=== PATIENT | female | born 1970 | race American Indian/Alaskan Native ===

== ENCOUNTER 2017-04-04 16:57 | Emergency (ER) | payer BC, OTHER ==
[2017-04-04] MEDS ORDERED: TYLENOL PO ONE (18:17)
[2017-04-04] MEDS ORDERED: NACL 0.9% 1000 ML 1,000 ML IV ONE (19:58)
[2017-04-04] MEDS ORDERED: ZOFRAN IV ONE (20:02)
--- NOTE | 2017-04-04 20:03 | Emergency Department Report ---
ED General Adult HPI - General Chief complaint: Upper Respiratory Infection Stated complaint: HEAD/THROAT/EARS Time Seen by Provider: 04/04/17 19:45 Source: patient Mode of arrival: Ambulatory Limitations: No Limitations - History of Present Illness Initial comments: headache, fever, cough, dizziness loss of appetite x 2 weeks Onset/Timin -: week(s) Location: head Radiation: non-radiation Severity scale (0 -10): 3 Quality: aching Consistency: intermittent Improves with: none Worsens with: eating, movement Associated Symptoms: cough, fever/chills, headaches, loss of appetite, malaise, nausea/vomiting. denies: confusion, chest pain, diaphoresis, rash, seizure, shortness of breath, syncope, weakness Treatments Prior to Arrival: none - Related Data Home Medications Medication Instructions Recorded Confirmed Last Taken Omeprazole [PriLOSEC] 40 mg PO QDAY 05/03/15 02/08/16 05/03/15 Triamter/Hctz 37.5-25 mg 1 tab PO QDAY 02/08/16 02/08/16 Unknown [Maxzide-25] Previous Rx's Medication Instructions Recorded Last Taken Type sulfaSALAzine [Azulfidine] 500 mg PO Q12HR #30 tablet 08/25/14 05/03/15 Rx Starch 51%(Nf) [Anusol] 1 each [place] BID #12 supp.rect 08/02/15 Unknown Rx HYDROcodone/APAP 5-325 [[place] 1 each PO Q4HR PRN #15 tablet 02/08/16 Unknown Rx 5/325] Amoxicillin/K Clav Tab [Augmentin 1 tab PO Q12HR #20 tab 04/04/17 Unknown Rx 875 mg] Fluticasone [Flonase] 1 spray NS QDAY #1 bottle 04/04/17 Unknown Rx Naproxen [Naprosyn TAB] 500 mg PO BID #30 tablet 04/04/17 Unknown Rx Allergies Allergy/AdvReac Type Severity Reaction Status Date / Time No Known Allergies Allergy Verified 04/04/17 17:07 ED Review of Systems ROS: Stated complaint: HEAD/THROAT/EARS Other details as noted in HPI Constitutional: chills, fever, malaise Eyes: denies: eye pain, eye discharge, vision change ENT: ear pain, throat pain, congestion. denies: dental pain, hearing loss, epistaxis Respiratory: cough. denies: orthopnea, shortness of breath, wheezing Cardiovascular: denies: chest pain, palpitations, dyspnea on exertion, orthopnea , edema, syncope, paroxysmal nocturnal dyspnea Endocrine: no symptoms reported Gastrointestinal: nausea, vomiting. denies: abdominal pain, diarrhea, constipation, hematemesis, melena, hematochezia Genitourinary: denies: urgency, dysuria, discharge Musculoskeletal: myalgia Skin: denies: rash, lesions Neurological: headache. denies: weakness, numbness, paresthesias, confusion, abnormal gait, vertigo Psychiatric: denies: anxiety, depression Hematological/Lymphatic: denies: easy bleeding, easy bruising ED Past Medical Hx - Past Medical History Previous Medical History?: No Hx Hypertension: Yes Hx GERD: Yes Additional medical history: chrons. Sinus disease. UTI. Hemorrhoids - Surgical History Additional Surgical History: tubal ligation - Social History Smoking Status: Current Some Day Smoker Substance Use Type: None - Medications Home Medications: Home Medications Medication Instructions Recorded Confirmed Last Taken Type sulfaSALAzine [Azulfidine] 500 mg PO Q12HR #30 tablet 08/25/14 02/08/16 Rx Omeprazole [PriLOSEC] 40 mg PO QDAY 05/03/15 02/08/16 05/03/15 History [place] 51%(Nf) [Anusol] 1 each [place] BID #12 supp.rect 08/02/15 02/08/16 Unknown Rx HYDROcodone/APAP 5-325 [[place] 1 each PO Q4HR PRN #15 tablet 02/08/16 Unknown Rx 5/325] Triamter/Hctz 37.5-25 mg 1 tab PO QDAY 02/08/16 02/08/16 Unknown History [Maxzide-25] Amoxicillin/K Clav Tab [Augmentin 1 tab PO Q12HR #20 tab 04/04/17 Unknown Rx 875 mg] Fluticasone [Flonase] 1 spray NS QDAY #1 bottle 04/04/17 Unknown Rx Naproxen [Naprosyn TAB] 500 mg PO BID #30 tablet 04/04/17 Unknown Rx ED Physical Exam - General Limitations: No Limitations General appearance: alert, in no apparent distress - Head Head exam: Present: atraumatic, normocephalic - Eye Eye exam: Present: normal appearance, PERRL, EOMI - ENT ENT exam: Present: mucous membranes moist - Expanded ENT Exam Expanded Ear exam: Present: normal external inspection TM/Canal exam: Erythema: Left TM, Canal Tenderness: Right TM, Left TM Mouth exam: Present: normal external inspection, tongue normal, other (bilat maxillary sinus pain to palpation, yellow post nasal drip, ). Absent: trismus Teeth exam: Present: normal inspection Throat exam: Positive: other (uvula midline airway is patent). Negative: tonsillar erythema, tonsillomegaly, tonsillar exudate, R peritonsillar mass, L peritonsillar mass - Neck Neck exam: Present: normal inspection, full ROM. Absent: tenderness, lymphadenopathy, thyromegaly - Respiratory Respiratory exam: Present: normal lung sounds bilaterally, chest wall tenderness. Absent: respiratory distress, wheezes, stridor, accessory muscle use - Cardiovascular Cardiovascular Exam: Present: regular rate, normal heart sounds - GI/Abdominal GI/Abdominal exam: Present: soft, normal bowel sounds. Absent: distended, tenderness, guarding, rebound, rigid, organomegaly, mass, bruit, hernia - Rectal Rectal exam: Present: deferred - Extremities Exam Extremities exam: Present: normal inspection, full ROM - Back Exam Back exam: Present: normal inspection, full ROM. Absent: CVA tenderness (R), CVA tenderness (L), muscle spasm, paraspinal tenderness, vertebral tenderness, rash noted - Neurological Exam Neurological exam: Present: alert, oriented X3, CN II-XII intact, normal gait, reflexes normal - Psychiatric Psychiatric exam: Present: normal affect, normal mood - Skin Skin exam: Present: warm, dry, intact, normal color. Absent: rash ED Course Vital Signs 04/04/17 04/04/17 17:07 22:05 Temperature 99.4 F 98.1 F Pulse Rate 119 H 96 H Respiratory 18 16 Rate Blood Pressure 146/97 Blood Pressure 142/82 [Left] O2 Sat by Pulse 100 100 Oximetry - Reevaluation(s) Reevaluation #1: pt advises symptoms improved no fever, headache reduces ot 0/10 no dizziness pt is ambulatory gait is steady pt continues to tolerated po intake without n/v plan tx for sinusitis, aom, pt will follow up with ENT as directed, pt will follow up with primary care for continue management of Crohns, pt verbalized agreement and understanding, repeat vital signs, 04/04/17 22:11 04/04/17 22:14 ED Medical Decision Making - Lab Data Result diagrams: 04/04/17 20:10 04/04/17 20:10 - Medical Decision Making pt is a 46 y/o aaf with hx chrons and sinusitits who presents for cough headache fever, head congestion and intermitent dizziness with n/v x 2 weeks , temp as I'm hot at night with coughing , pt denies sob no cp no pnd no marsh, exam: pt appears nontoxic , a/ox 3 , ENT: as noted bilat maxillary sinus pain to palpation , nose: bilat turbinate erythema swelling no polyps, no obstruction pharynx: moderate erythema no exudate no lesions, uvula mildline airway is patent, lungs clear bilat all lobes no wheezing no rhonchi, cv: s1 and s2 no mrg, abd: bs x 4 qds normal soft round nontender no rebound no bruit no hernia no organomegaly , pt is ambulatory gait steady no vertigo, headach 2/ 10 frontal no eye pain , intermittent n/v relieved today pt is currently tolerating po intake, last meal 2 hrs ago without n/v, last po liquids now, CXR : no infiltrates no opacities, hr noted atg 119, temp 99.9 oral, will obtain cmp, cbc, ua, NS 1000, zofran for nausea, pt advises adherence to omeprazole, and tiramterine daily, Critical care attestation.: If time is entered above; I have spent that time in minutes in the direct care of this critically ill patient, excluding procedure time. ED Disposition Clinical Impression: Sinusitis Qualifiers: Sinusitis location: maxillary Chronicity: acute Recurrence: recurrent Qualified Code(s): J01.01 - Acute recurrent maxillary sinusitis Disposition: - TO HOME OR SELFCARE Is pt being admited?: No Does the pt Need Aspirin: No Condition: Good Additional Instructions: follow up with ENT [facility] [phone] , [address], [facility] [address] Prescriptions: Amoxicillin/K Clav Tab [Augmentin 875 mg] 1 tab PO Q12HR #20 tab Fluticasone [Flonase] 1 spray NS QDAY #1 bottle Naproxen [Naprosyn TAB] 500 mg PO BID #30 tablet Referrals: PRIMARY CARE, [Primary Care Provider] - 3-5 Days Forms: Work/School Release Form(ED) Time of Disposition: 22:20
--- NOTE | 2017-04-04 20:29 | XRay Report ---
FINAL REPORT PROCEDURE: Chest. TECHNIQUE: Frontal and lateral views. HISTORY: Cough, shortness of breath. COMPARISON: No prior studies are available for comparison. FINDINGS: The heart size is normal. There is mild tortuosity of the thoracic aorta. The lungs are clear and well expanded. There are no pleural effusions. The soft tissues and regional skeleton are unremarkable. IMPRESSION: No evidence of acute disease.
[2017-04-04 20:38] LABS: Eosinophils % (Auto) 2.4 % (0.0-4.3); Hematocrit 33.4 % (30.3-42.9); Hemoglobin 10.7 gm/dl (10.1-14.3); Mean Corpuscular HGB Conc 32 % (30-34); Mean Corpuscular Hemoglobin 26 pg (28-32); Mean Corpuscular Volume 82 fl (79-97); Platelet Count 445 K/mm3 (140-440); Red Blood Count 4.09 M/mm3 (3.65-5.03); Red Cell Distribution Width 19.5 % (13.2-15.2); White Blood Count 11.1 K/mm3 (4.5-11.0)
[2017-04-04 20:51] LABS: Alanine Aminotransferase 12 units/L (7-56); Albumin 4.1 g/dL (3.9-5); Albumin/Globulin Ratio 1.4 %; Alkaline Phosphatase 65 units/L (35-129); Anion Gap 17 mmol/L; BUN/Creatinine Ratio 23.33; Blood Urea Nitrogen 14 mg/dL (7-17); Calcium 9.3 mg/dL (8.4-10.2); Carbon Dioxide 27 mmol/L (22-30); Chloride 99.6 mmol/L (98-107); Glucose 97 mg/dL (65-100); Potassium 3.6 mmol/L (3.6-5.0); Sodium 140 mmol/L (137-145)
[2017-04-04] MEDS ORDERED: TORADOL IV ONE (20:56)
[2017-04-04 21:01] LABS: Bilirubin,Urine NEG (Negative); Blood,Urine MOD (Negative); Ketones,Urine NEG (Negative); Leukocyte Esterase,Urine SM (Negative); Nitrite,Urine NEG (Negative); Protein,Urine <15 mg/dL mg/dL (Negative); Urobilinogen,Urine < 2.0 mg/dL (<2.0)
[2017-04-04 21:18] LABS: Bacteria,Urine F /HPF (Negative)
[2017-04-04 22:06] VITALS: BP 142/82
== END 2017-04-04 22:51 | disposition home or self-care (01) ==
LOC: ED 16:57
DX: J01.01 Acute recurrent maxillary sinusitis (principal); I10 Essential (primary) hypertension; K21.9 Gastro-esophageal reflux disease without esophagitis; K50.90 Crohn's disease, unspecified, without complications; Z72.0 Tobacco use
CPT/HCPCS: 36415; 71020; 80053; 81001; 81025; 85025; 96361; 96374; 96375; 99284; J1885; J2405; J7030

== ENCOUNTER 2017-05-20 18:57 | Emergency (ER) | payer OTHER ==
--- NOTE | 2017-05-21 00:28 | Emergency Department Report ---
- General Chief Complaint: Upper Respiratory Infection Stated Complaint: SORE THROAT/EARACHE/CHEST CONGEST/HEADACHE Time Seen by Provider: 05/20/17 23:40 Source: patient Mode of arrival: Ambulatory Limitations: No Limitations - History of Present Illness Initial Comments: This is a 47-year-old female nontoxic, well nourished in appearance, no acute signs of distress presents to the ED complaining of productive cough, sore throat, congestion, and frontal sinus pressure headache 1 week. 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 Patient denies any fever, chills, short of breath, difficulty breathing, drooling, hoarseness, stiff neck, numbness, tingling, nausea or vomiting. Patient denies any allergies. Past medical history includes GERD and hypertension. Patient stated her mucus production is yellow/green in color. Patient denies thunderclap headache. It is a gradual onset. Discussed headache as primarily in the frontal sinus region and describes as aching with level of 10 out of 10. MD Complaint: cough, sore throat, nasal congestion, sinus pain -: Gradual, week(s) (1) Severity: mild Severity scale (0 -10): 10 Quality: aching Consistency: constant Improves With: nothing Worsens With: nothing Context: sick contacts (daycare) Associated Symptoms: headache, nasal congestion, sore throat, cough. denies: fever, chills, myalgias, diaphoresis, rhinorrhea, stiff neck, chest pain, shortness of breath, abdominal pain, nausea, vomiting, diarrhea, dysuria, rash, confusion, right sweats, weight loss, epistaxis, hoarseness, ear pain Treatments Prior to Arrival: none - Related Data Home Medications Medication Instructions Recorded Confirmed Last Taken Omeprazole [PriLOSEC] 40 mg PO QDAY 05/03/15 02/08/16 05/03/15 Triamter/Hctz 37.5-25 mg 1 tab PO QDAY 02/08/16 02/08/16 Unknown [Maxzide-25] Previous Rx's Medication Instructions Recorded Last Taken Type sulfaSALAzine [Azulfidine] 500 mg PO Q12HR #30 tablet 08/25/14 05/03/15 Rx [place] 51%(Nf) [Anusol] 1 each [place] BID #12 supp.rect 08/02/15 Unknown Rx HYDROcodone/APAP 5-325 [[place] 1 each PO Q4HR PRN #15 tablet 02/08/16 Unknown Rx 5/325] Amoxicillin/K Clav Tab [Augmentin 1 tab PO Q12HR #20 tab 04/04/17 Unknown Rx 875 mg] Fluticasone [Flonase] 1 spray NS QDAY #1 bottle 04/04/17 Unknown Rx Naproxen [Naprosyn TAB] 500 mg PO BID #30 tablet 04/04/17 Unknown Rx Amoxicillin/K Clav Tab [Augmentin 1 tab PO Q12HR #20 tab 05/21/17 Unknown Rx 875 mg] Allergies Allergy/AdvReac Type Severity Reaction Status Date / Time No Known Allergies Allergy Verified 04/04/17 17:07 ED Review of Systems ROS: Stated complaint: SORE THROAT/EARACHE/CHEST CONGEST/HEADACHE Other details as noted in HPI Constitutional: denies: chills, fever Eyes: denies: eye pain, eye discharge, vision change ENT: throat pain Respiratory: cough. denies: shortness of breath, wheezing Cardiovascular: denies: chest pain, palpitations Endocrine: no symptoms reported Gastrointestinal: denies: abdominal pain, nausea, diarrhea Genitourinary: denies: urgency, dysuria, discharge Musculoskeletal: denies: back pain, joint swelling, arthralgia Skin: denies: rash, lesions Neurological: denies: headache, weakness, paresthesias Psychiatric: denies: anxiety, depression Hematological/Lymphatic: denies: easy bleeding, easy bruising ED Past Medical Hx - Past Medical History Hx Hypertension: Yes Hx GERD: Yes Additional medical history: chrons. Sinus disease. UTI. Hemorrhoids - Surgical History Additional Surgical History: tubal ligation - Social History Smoking Status: Current Some Day Smoker Substance Use Type: Alcohol - Medications Home Medications: Home Medications Medication Instructions Recorded Confirmed Last Taken Type sulfaSALAzine [Azulfidine] 500 mg PO Q12HR #30 tablet 08/25/14 02/08/16 Rx Omeprazole [PriLOSEC] 40 mg PO QDAY 05/03/15 02/08/16 05/03/15 History [place] 51%(Nf) [Anusol] 1 each [place] BID #12 supp.rect 08/02/15 02/08/16 Unknown Rx HYDROcodone/APAP 5-325 [[place] 1 each PO Q4HR PRN #15 tablet 02/08/16 Unknown Rx 5/325] Triamter/Hctz 37.5-25 mg 1 tab PO QDAY 02/08/16 02/08/16 Unknown History [Maxzide-25] Amoxicillin/K Clav Tab [Augmentin 1 tab PO Q12HR #20 tab 04/04/17 Unknown Rx 875 mg] Fluticasone [Flonase] 1 spray NS QDAY #1 bottle 04/04/17 Unknown Rx Naproxen [Naprosyn TAB] 500 mg PO BID #30 tablet 04/04/17 Unknown Rx Amoxicillin/K Clav Tab [Augmentin 1 tab PO Q12HR #20 tab 05/21/17 Unknown Rx 875 mg] ED Physical Exam - General Limitations: No Limitations General appearance: alert, in no apparent distress - Head Head exam: Present: atraumatic, normocephalic, normal inspection - Eye Eye exam: Present: normal appearance, PERRL, EOMI. Absent: scleral icterus, conjunctival injection, nystagmus, periorbital swelling, periorbital tenderness Pupils: Present: normal accommodation - ENT ENT exam: Present: mucous membranes moist, TM's normal bilaterally, normal external ear exam - Expanded ENT Exam Expanded Mouth exam: Present: normal external inspection, tongue normal. Absent: drooling, trismus, muffled voice, tongue elevation, laceration Teeth exam: Present: normal inspection Throat exam: Positive: tonsillar erythema, tonsillomegaly (2+), tonsillar exudate. Negative: R peritonsillar mass, L peritonsillar mass - Neck Neck exam: Present: normal inspection, full ROM. Absent: tenderness, meningismus, lymphadenopathy, thyromegaly - Respiratory Respiratory exam: Present: normal lung sounds bilaterally. Absent: respiratory distress, wheezes, rales, rhonchi, stridor, chest wall tenderness, accessory muscle use, decreased breath sounds, prolonged expiratory - Cardiovascular Cardiovascular Exam: Present: regular rate, normal rhythm, normal heart sounds. Absent: systolic murmur, diastolic murmur, rubs, gallop - GI/Abdominal GI/Abdominal exam: Present: soft, normal bowel sounds. Absent: distended, tenderness, guarding, rebound, rigid, diminished bowel sounds - Rectal Rectal exam: Present: deferred - Extremities Exam Extremities exam: Present: normal inspection, full ROM, normal capillary refill. Absent: tenderness, pedal edema, joint swelling, calf tenderness - Back Exam Back exam: Present: normal inspection, full ROM. Absent: tenderness, CVA tenderness (R), CVA tenderness (L), muscle spasm, paraspinal tenderness, vertebral tenderness, rash noted - Neurological Exam Neurological exam: Present: alert, oriented X3, CN II-XII intact, normal gait, reflexes normal - Psychiatric Psychiatric exam: Present: normal affect, normal mood - Skin Skin exam: Present: warm, dry, intact, normal color. Absent: rash ED Course Vital Signs 05/20/17 19:52 Temperature 98.8 F Pulse Rate 100 H Respiratory 20 Rate Blood Pressure 122/87 O2 Sat by Pulse 100 Oximetry - Reevaluation(s) Reevaluation #1: 05/21/17 00:28 Patient is speaking in full sentences with no signs of distress noted. ED Medical Decision Making - Medical Decision Making 47-year-old female that presents with tonsillitis with exudate and sinusitis. Patient is stable. Patient was examined myself. Patient be treated with Augmentin at discharge. Was instructed to follow-up with her primary care doctor in 3-5 days or symptoms worsen and continue return to emergency room as soon as possible. At time time of discharge, the patient does not seem toxic or ill in appearance. No acute signs of distress noted. Patient agrees to discharge treatment plan of care. No further questions noted by the patient. Critical care attestation.: If time is entered above; I have spent that time in minutes in the direct care of this critically ill patient, excluding procedure time. ED Disposition Clinical Impression: Tonsillitis with exudate Sinusitis Qualifiers: Sinusitis location: frontal Chronicity: unspecified Qualified Code(s): J32.1 - Chronic frontal sinusitis Disposition: - TO HOME OR SELFCARE Is pt being admited?: No Does the pt Need Aspirin: No Condition: Stable Instructions: Tonsillitis (ED), Amoxicillin/Clavulanate Potassium (By mouth), Sinusitis (ED) Additional Instructions: follow-up with a primary care doctor in 3-5 days or symptoms worsen and continue return to emergency room as soon as possible. Prescriptions: Amoxicillin/K Clav Tab [Augmentin 875 mg] 1 tab PO Q12HR #20 tab Referrals: PRIMARY CARE,MD [Primary Care Provider] - 3-5 Days DONNIE TOVAR MD [Staff Physician] - 3-5 Days [facility] [Outside] - 3-5 Days [facility] [Outside] - 3-5 Days Forms: Work/School Release Form(ED)
--- NOTE | 2017-05-21 01:52 | XRay Report ---
FINAL REPORT PROCEDURE: XR CHEST ROUTINE 2V TECHNIQUE: HISTORY: cough productive COMPARISON: No prior studies are available for comparison. FINDINGS: IMPRESSION:
[2017-05-21 02:29] VITALS: BP 130/86
== END 2017-05-21 03:30 | disposition home or self-care (01) ==
LOC: ED 18:57
DX: J32.1 Chronic frontal sinusitis (principal); J03.90 Acute tonsillitis, unspecified; I10 Essential (primary) hypertension; K21.9 Gastro-esophageal reflux disease without esophagitis; F17.200 Nicotine dependence, unspecified, uncomplicated
CPT/HCPCS: 71020

== ENCOUNTER 2017-09-29 09:57 | Emergency (ER) | payer OTHER ==
[2017-09-29] MEDS ORDERED: NACL 0.9% 1000 ML 1,000 ML IV ONE (11:38)
[2017-09-29 12:20] LABS: Basophils # (Auto) 0.1 K/mm3 (0.0-0.1); Basophils % (Auto) 0.5 % (0.0-1.8); Eosinophils # (Auto) 0.2 K/mm3 (0.0-0.4); Eosinophils % (Auto) 1.6 % (0.0-4.3); Hematocrit 33.8 % (30.3-42.9); Hemoglobin 10.6 gm/dl (10.1-14.3); Lymphocytes # (Auto) 2.5 K/mm3 (1.2-5.4); Lymphocytes % (Auto) 18.6 % (13.4-35.0); Mean Corpuscular HGB Conc 31 % (30-34); Mean Corpuscular Volume 78 fl (79-97); Monocytes # (Auto) 0.8 K/mm3 (0.0-0.8); Monocytes % (Auto) 5.9 % (0.0-7.3); Platelet Count 437 K/mm3 (140-440); Red Blood Count 4.34 M/mm3 (3.65-5.03); Red Cell Distribution Width 18.3 % (13.2-15.2)
[2017-09-29 12:25] LABS: Mean Corpuscular Hemoglobin 25 pg (28-32)
[2017-09-29 12:31] LABS: INR 0.94 (0.87-1.13)
[2017-09-29 12:32] LABS: Partial Thromboplastin Time 28.2 Sec. (24.2-36.6)
[2017-09-29 12:39] LABS: Alanine Aminotransferase 11 units/L (7-56); Albumin 3.9 g/dL (3.9-5); BUN/Creatinine Ratio 26; Blood Urea Nitrogen 13 mg/dL (7-17); Calcium 9.2 mg/dL (8.4-10.2); Hemolysis Index 7; Lipase 19 units/L (13-60)
[2017-09-30] MEDS ORDERED: DILAUDID IV ONE (00:22)
[2017-09-30] MEDS ORDERED: ZOFRAN IV ONE (00:22)
[2017-09-30] MEDS ORDERED: NACL 0.9% 1000 ML 1,000 ML IV ONE (00:22)
--- NOTE | 2017-09-30 02:19 | Cat Scan Report ---
FINAL REPORT EXAM: CT ABDOMEN PELVIS W CON HISTORY: abdominal pain, hx chron's TECHNIQUE: Routine axial imaging was obtained of the abdomen and pelvis following the intravenous injection of 100 cc of Omnipaque 300. Sagittal and coronal reconstructions were obtained. Additional 5 minutes delays were obtained for evaluation of the renal collecting structures. Comparison is made to the previous study of 07/29/2017. FINDINGS: The lung bases are clear. Pleural fluid is not seen. There is a small hiatal hernia. The gallbladder slightly contracted. The liver, pancreas, spleen all appear normal. The adrenal glands reveal stable small nodules in the right adrenal gland. The left adrenal gland appears normal. The kidneys enhance normally. There is a stable 2.1 cm cortical cyst in the middle 3rd of left kidney posteriorly. The vascular structures enhance normally. The small bowel loops are normal in caliber. There is no evidence of inflammatory bowel disease involving the small bowel or terminal ileum. The colon is normal in caliber. There is mild mucosal thickening in the sigmoid colon and rectum. Very mild colitis cannot entirely be excluded. The uterus and bladder appear normal. Free fluid is not seen. There is no evidence of adenopathy. The skeletal structures reveal disc degeneration at the L3-4 and L4-5 levels. IMPRESSION: Very mild mucosal prominence in the sigmoid colon and rectum. Mild colitis cannot be excluded. No evidence of active inflammatory bowel disease involving the small bowel. Stable small right adrenal nodules. 2.1 cm cortical cyst in the left kidney. Arthritic changes at the L3-4 and L4-5 levels.
[2017-09-30] MEDS ORDERED: LEVAQUIN PO ONE (02:31)
[2017-09-30] MEDS ORDERED: FLAGYL PO ONE (02:31)
--- NOTE | 2017-09-30 02:36 | Emergency Department Report ---
HPI - General Chief Complaint: GI Bleed Time Seen by Provider: 09/29/17 23:49 - HPI HPI: The patient is a 47-year-old female with a history of Crohn's disease, who presents for evaluation of abdominal pain. The patient reports sudden onset of severe abdominal pain at 8 AM this morning, greater than 12 hours prior to my evaluation. She says abdominal pain has been 10/10 in severity, cramping and pressure-like in quality, concentrated to the left lower abdomen, and worsen with movement. She also reports nausea and multiple episodes of loose watery stools associated with streaks of blood. The patient denies fever, chills, night sweats, chest pain, dyspnea, lightheadedness, syncope, dysuria, hematuria , flank pain, genital discharge, inability to pass flatus. ED Past Medical Hx - Past Medical History Previous Medical History?: Yes Hx Hypertension: Yes Hx Congestive Heart Failure: No Hx Diabetes: No Hx GERD: Yes Hx Sickle Cell Disease: No Hx Asthma: No Hx COPD: No Hx HIV: No Additional medical history: chrons. Sinus disease. UTI. Hemorrhoids - Surgical History Past Surgical History?: Yes Additional Surgical History: tubal ligation - Social History Smoking Status: Former Smoker Substance Use Type: Alcohol, Prescribed - Medications Home Medications: Home Medications Medication Instructions Recorded Confirmed Last Taken Type Omeprazole [PriLOSEC] 40 mg PO QDAY 05/03/15 07/30/17 07/28/17 History Mesalamine [Pentasa] 1,000 mg PO 4XD 07/29/17 07/29/17 07/28/17 History Pantoprazole [Protonix TAB] 40 mg PO DAILY #30 tablet 08/02/17 Unknown Rx Triamter/Hctz 37.5-25 mg 1 each PO DAILY #30 tablet 08/02/17 Unknown Rx [Maxzide-25] HYDROcodone/APAP 7.5-325 [[place] 1 each PO Q8HR PRN #10 tablet 09/30/17 Unknown Rx 7.5-325 mg TAB] Ibuprofen [Motrin] 800 mg PO Q8HR PRN #15 tablet 09/30/17 Unknown Rx Levofloxacin [Levaquin TAB] 500 mg PO ONCE #10 tablet 09/30/17 Unknown Rx Ondansetron [Zofran TAB] 4 mg PO Q8HR PRN #15 tablet 09/30/17 Unknown Rx metroNIDAZOLE [Flagyl TAB] 500 mg PO ONCE #20 tablet 09/30/17 Unknown Rx ED Review of Systems ROS: Stated complaint: ABD PAIN, BLOODY STOOL Other details as noted in HPI Constitutional: denies: fever ENT: denies: throat or neck pain Respiratory: denies: cough, shortness of breath Cardiovascular: denies: chest pain Endocrine: denies unexplained weight loss or gain Gastrointestinal: reports: abdominal pain, nausea Genitourinary: denies: dysuria Musculoskeletal: denies: leg swelling Skin: denies: rash Neurological: denies: headache Hematological/Lymphatic: denies: easy bleeding or easy bruising Psych: denies sadness or hopelessness Physical Exam - Physical Exam Vital Signs: Vital Signs 09/29/17 09/29/17 11:35 14:47 Temperature 98.4 F 97.5 F L Pulse Rate 97 H 94 H Respiratory 16 16 Rate Blood Pressure 151/93 Blood Pressure 138/84 [138/84] O2 Sat by Pulse 100 100 Oximetry Physical Exam: General: well-nourished, well-developed, no acute distress Head: Normocephalic, atraumatic Eyes: normal sclera ENT: Mucous membranes are pale and dry Neck: trachea midline, neck supple, No neck stiffness, no cervical adenopathy Respiratory: Breath sounds equal bilaterally, no wheezing, rales, or rhonchi Cardio: S1 and S2 present, no murmurs, rubs, gallops, capillary refill is delayed Abdomen: Normoactive bowel sounds, soft abdomen, left lower quadrant periumbilical tenderness to palpation present, no rigidity, no guarding or rebound tenderness, no pain at McBurney's point, Musc: No pitting edema Skin: No rash Neuro: no facial drooping, normal speech Psych: Normal affect ED Course Vital Signs 09/29/17 09/29/17 11:35 14:47 Temperature 98.4 F 97.5 F L Pulse Rate 97 H 94 H Respiratory 16 16 Rate Blood Pressure 151/93 Blood Pressure 138/84 [138/84] O2 Sat by Pulse 100 100 Oximetry ED Medical Decision Making - Lab Data Result diagrams: 09/29/17 11:50 09/29/17 11:50 - Medical Decision Making The patient was seen and examined by myself. The patient is placed on a software test and validation engineer and continuous pulse ox. On initial evaluation, the patient was found to be in no distress. Evaluation orders are placed. IV access is established and the patient is given 1 L normal saline fluid bolus and Zofran for nausea, and IV dilaudid for her pain. Lab results were non-concerning including mildly elevated WBC of 13, and non concerning levels of hgb, hct, electrolytes, renal function, LFTs, lipase, and urinalysis. CT scan the abdomen and pelvis reveals findings suggestive of mild sigmoid colitis, and was negative for appendicitis, bowel obstruction, bowel perforation. The patient was reevaluated and reported that their symptoms were markedly improved. The patient is stable for discharge with outpatient follow-up. The patient is given follow-up and return instructions. The patient expressed understanding and agreed with the plan. The patient is discharged in stable condition. Critical care attestation.: If time is entered above; I have spent that time in minutes in the direct care of this critically ill patient, excluding procedure time. ED Disposition Clinical Impression: Acute colitis, Abdominal pain, acute, left lower quadrant, Dehydration Disposition: - TO HOME OR SELFCARE Is pt being admited?: No Does the pt Need Aspirin: No Condition: Stable Instructions: Irritable Bowel Syndrome (ED), Ulcerative Colitis (ED), Infectious Colitis (ED), Abdominal Pain (ED) Prescriptions: Levofloxacin [Levaquin TAB] 500 mg PO ONCE #10 tablet metroNIDAZOLE [Flagyl TAB] 500 mg PO ONCE #20 tablet Referrals: PRIMARY CARE, [Primary Care Provider] - 3-5 Days Time of Disposition: 02:32
[2017-09-30] MEDS ORDERED: FLAGYL ONE (05:18)
[2017-09-30] MEDS ORDERED: LEVAQUIN ONE (05:19)
[2017-09-30 05:27] VITALS: BP 125/80
== END 2017-09-30 05:50 | disposition home or self-care (01) ==
LOC: ED 09:57
DX: K52.9 Noninfective gastroenteritis and colitis, unspecified (principal); E86.0 Dehydration; R10.32 Left lower quadrant pain
CPT/HCPCS: 36415; 74177; 80053; 83690; 85025; 85610; 85730; 86850; 86900; 86901; 93005; 93010; 96361; 96374; 96375; 99284; Q9967

== ENCOUNTER 2017-10-22 09:58 | Day surgery (SDC) | payer OTHER ==
[2017-10-22] MEDS ORDERED: NACL 0.9% 1000 ML 1,000 ML IV SCH (12:00)
[2017-10-22] MEDS ORDERED: DIPRIVAN 10 MG/ML IV ONE ×2 (13:07)
[2017-10-22] MEDS ORDERED: WATER FOR IRRIG STERILE IR ONE (13:37)
--- NOTE | 2017-10-22 13:38 | Operative Report ---
Operative Report Operative Report: Date of procedure: 10/22/2017 Procedure: Colonoscopy with multiple mucosal biopsies. Attending physician: Roberto Willson MD Lactation Nurse: Roberto Willson MD Indication: Patient is a 47-year-old female who presents with a history of Crohn 's disease. Patient has diffuse abdominal pain and also alteration in bowel habits. A colonoscopy is done to evaluate patient so that treatment may be directed based on the findings. Consent: Informed consent was obtained after advising the patient and family regarding nature of this procedure, its indications, potential benefits as well as possible complications including but not limited to bleeding perforation and adverse reaction to medication, infection as well as other cardiopulmonary complications. An informed written and verbal consent was then obtained after due opportunity was provided for questions and answers. Monitoring: Patient was monitored continuously with pulse oximetry and electrocardiographic recordings as well as blood pressure recordings. Vital signs remained stable throughout this procedure with no untoward events. Preoperative assessment: Patient was assessed immediately prior to this procedure for capacity to tolerate monitored anesthesia care and moderate sedation as well as general anesthesia. Patient's ASA classification is 2, Mallampati class is 2, Hyomental distance is 3. Instrument: TeamPagesn videocolonoscope Medications: Propofol given intravenously in divided doses for details please refer to anesthesia records. Description of procedure: Patient was placed in the left lateral decubitus position after achieving sedation, a digital rectal examination was performed following which the colonoscope was introduced into the anal verge and advanced to the cecum which was identified by the cecal valve, the appendiceal orifice, as well as by the cecal strap and direct transillumination. The colonoscope was subsequently withdrawn with careful inspection of all mucosal surfaces. Patient tolerated this procedure well and was subsequently taken to the recovery room. The following findings were noted. Findings: Patient had a stricture close to the anal verge at about 8 cm. This was fairly difficult to negotiate however eventually, the colonoscope was used to traverse the stricture. It was then advanced to the cecum where patient was noted to have substantial retained stool. Despite vigorous irrigation, some of the stool particles were large enough that this could not be fully displaced. The rest of the ascending colon however was normal. In the transverse colon, patient had inflammatory pseudopolyps. Biopsies were obtained from this area for histopathology. The descending colon was normal. The sigmoid colon was normal. The rectum appeared edematous and hyperemic with effacement of normal vascular markings in some areas. Biopsies were obtained from the rectum for histopathology. On the retroflex view patient had internal hemorrhoids. Patient had vitiligo involving the anal introitus. Impression: Rectal stricture. Inflammatory pseudopolyps in the transverse colon. Anorectal inflammation. Poor colonoscopic preparation. Internal hemorrhoids. Plan: Follow pathology report Continue treatment with Pentasa and finish current prednisone taper. Additional steps will be taken in outpatient follow-up.
--- NOTE | 2017-10-22 13:39 | Discharge Summary ---
Short Stay Discharge Plan Activity: advance as tolerated Weight Bearing Status: Weight Bear as Tolerated Diet: regular Follow up with: LUPE LUJAN MD [Primary Care Provider] - 7 Days
[2017-10-22 13:58] VITALS: BP 126/73
--- NOTE | 2017-10-22 13:59 | Anesthesia Day of Surgery ---
Anesthesia Day of Surgery - Day of Surgery Patient Examined: Yes Patient H&P Reviewed: Yes Patient is NPO: Yes
--- NOTE | 2017-10-22 14:00 | Anesthesia Consultation ---
Anesthesia Consult and Med Hx Date of service: 10/22/17 - Airway Anesthetic Teeth Evaluation: Good ROM Head & Neck: Adequate Mental/Hyoid Distance: Adequate Mallampati Class: Class II Intubation Access Assessment: Probably Good - Pulmonary Exam CTA: Yes - Cardiac Exam Cardiac Exam: RRR - Pre-Operative Health Status ASA Pre-Surgery Classification: ASA3 Proposed Anesthetic Plan: General (crohns dz) - Pulmonary Hx Smoking: Yes Hx Asthma: No COPD: No Hx Pneumonia: No - Cardiovascular System Hx Hypertension: Yes - Central Nervous System Hx Psychiatric Problems: No - Gastrointestinal Hx Ulcer: Yes - Endocrine Hx End Stage Renal Disease: No Hx Hypothyroidism: Yes - Hematic Hx Anemia: Yes Hx Sickle Cell Disease: No - Other Systems Hx Cancer: No
--- NOTE | 2017-10-22 15:03 | Post Anesthesia Evaluation ---
- Post Anesthesia Evaluation Patient Participated: Yes Airway Patent: Yes Stable Respiratory Function: Yes Nausea/Vomiting: No Temp > 96.8F: Yes Pain Manageable: Yes Adequeate Hydration: Yes Anesthesia Complications: No
== END 2017-10-22 09:59 | disposition home or self-care (01) ==
LOC: GIO 09:58
PROVIDERS: ATTEND Internal Medicine Gastroenterology
DX: K51.40 Inflammatory polyps of colon without complications (principal); K52.89 Other specified noninfective gastroenteritis and colitis; K62.89 Other specified diseases of anus and rectum; K62.4 Stenosis of anus and rectum; F17.210 Nicotine dependence, cigarettes, uncomplicated; E03.9 Hypothyroidism, unspecified; I10 Essential (primary) hypertension; K21.9 Gastro-esophageal reflux disease without esophagitis; Z98.51 Tubal ligation status; Z98.890 Other specified postprocedural states; Z79.899 Other long term (current) drug therapy
CPT/HCPCS: 45380; 81025; 88305; J2704; J7030

== ENCOUNTER 2017-11-30 08:48 | Emergency (ER) | payer OTHER ==
[2017-11-30] MEDS ORDERED: NACL 0.9% 1000 ML 1,000 ML IV ONE (09:28)
[2017-11-30] MEDS ORDERED: ZOFRAN IV ONE (09:28)
[2017-11-30 09:52] LABS: Basophils # (Auto) 0.1 K/mm3 (0.0-0.1); Eosinophils # (Auto) 0.2 K/mm3 (0.0-0.4); Eosinophils % (Auto) 1.8 % (0.0-4.3); Hematocrit 32.4 % (30.3-42.9); Hemoglobin 10.5 gm/dl (10.1-14.3); Lymphocytes # (Auto) 2.5 K/mm3 (1.2-5.4); Lymphocytes % (Auto) 24.4 % (13.4-35.0); Mean Corpuscular HGB Conc 32 % (30-34); Mean Corpuscular Hemoglobin 27 pg (28-32); Mean Corpuscular Volume 84 fl (79-97); Monocytes # (Auto) 0.7 K/mm3 (0.0-0.8); Monocytes % (Auto) 6.3 % (0.0-7.3); Platelet Count 480 K/mm3 (140-440); Red Blood Count 3.87 M/mm3 (3.65-5.03)
[2017-11-30 10:04] LABS: Red Cell Distribution Width 21.2 % (13.2-15.2)
[2017-11-30 10:05] LABS: BUN/Creatinine Ratio 26; Blood Urea Nitrogen 13 mg/dL (7-17); Calcium 8.7 mg/dL (8.4-10.2); Hemolysis Index 31
[2017-11-30 10:07] LABS: Alanine Aminotransferase 7 units/L (7-56); Albumin 3.7 g/dL (3.9-5); Lipase 14 units/L (13-60)
[2017-11-30 10:08] LABS: Bilirubin,Direct < 0.2 mg/dL (0-0.2)
[2017-11-30] MEDS ORDERED: REGLAN IV ONE (10:10)
--- NOTE | 2017-11-30 11:09 | Emergency Department Report ---
ED Headache HPI - General Chief Complaint: Headache Stated Complaint: HERNANDEZ/BLEEDING TWO WEEKS Time Seen by Provider: 11/30/17 10:09 - History of Present Illness Initial Comments: 47-year-old female past medical history Crohn's disease on azathioprine and daily prednisone, GERD, tubal ligation, hypertension presents with complaint of persistent headache for one week. Throbbing anterior intermittent and context. Denies photo or phonophobia. Denies chest pain palpitations fever or chills. Denies any head trauma or recent falls. Patient also complains of persistent heavy vaginal bleeding and passing clots from vagina for 2 weeks. Patient denies rectal bleeding. Patient denies any abdominal pain at this time. Has been taking her medicines consistently. She is a smoker. Denies any recent antibiotic use or travel. She also complains of some bilateral ear which may be associated with headache. Denies any purulent drainage from ears. Denies sore throat cough fever or chills. Timing/Duration: 1 week Quality: moderate Head Injury Location: frontal Recent Head Trauma: no recent headache/trauma Associated Symptoms: denies symptoms Allergies/Adverse Reactions: Allergies No Known Allergies Allergy (Verified 11/30/17 09:02) Home Medications: Ambulatory Orders Omeprazole [PriLOSEC] 40 mg PO QDAY 05/03/15 Mesalamine [Pentasa] 1,000 mg PO 4XD 07/29/17 Pantoprazole [Protonix TAB] 40 mg PO DAILY #30 tablet 08/02/17 Triamter/Hctz 37.5-25 mg [Maxzide-25] 1 each PO DAILY #30 tablet 08/02/17 HYDROcodone/APAP 7.5-325 [[place] 7.5-325 mg TAB] 1 each PO Q8HR PRN #10 tablet Ibuprofen [Motrin] 800 mg PO Q8HR PRN #15 tablet 09/30/17 Levofloxacin [Levaquin TAB] 500 mg PO ONCE #10 tablet 09/30/17 Ondansetron [Zofran TAB] 4 mg PO Q8HR PRN #15 tablet 09/30/17 metroNIDAZOLE [Flagyl TAB] 500 mg PO ONCE #20 tablet 09/30/17 Amoxicillin [Trimox CAP] 500 mg PO Q8H #21 capsule 11/30/17 Carbamide Peroxide 6.5% [Ear Wax Drops] 5 drops OT BID #1 bottle 11/30/17 Famotidine [Pepcid] 20 mg PO BID PRN #30 tablet 11/30/17 Ibuprofen [Motrin] 800 mg PO Q8HR PRN #15 tablet 11/30/17 Ondansetron [Zofran Odt] 4 mg PO Q8H PRN #12 tab.rapdis 11/30/17 ED Review of Systems ROS: Stated complaint: HERNANDEZ/BLEEDING TWO WEEKS Other details as noted in HPI Constitutional: denies: chills, fever Eyes: denies: eye pain, eye discharge, vision change ENT: denies: ear pain, throat pain Respiratory: denies: cough, shortness of breath, wheezing Cardiovascular: denies: chest pain, palpitations Endocrine: no symptoms reported Gastrointestinal: denies: abdominal pain, nausea, diarrhea Genitourinary: denies: urgency, dysuria, discharge Musculoskeletal: denies: back pain, joint swelling, arthralgia Skin: denies: rash, lesions Neurological: denies: headache, weakness, paresthesias Psychiatric: denies: anxiety, depression Hematological/Lymphatic: denies: easy bleeding, easy bruising ED Past Medical Hx - Past Medical History Previous Medical History?: Yes Hx Hypertension: Yes Hx Congestive Heart Failure: No Hx Diabetes: No Hx GERD: Yes Hx Sickle Cell Disease: No Hx Asthma: No Hx COPD: No Hx HIV: No Additional medical history: chrons. Sinus disease. UTI. Hemorrhoids - Surgical History Past Surgical History?: Yes Additional Surgical History: tubal ligation - Social History Smoking Status: Never Smoker - Medications Home Medications: Home Medications Medication Instructions Recorded Confirmed Last Taken Type Omeprazole [PriLOSEC] 40 mg PO QDAY 05/03/15 07/30/17 07/28/17 History Mesalamine [Pentasa] 1,000 mg PO 4XD 07/29/17 07/29/17 07/28/17 History Pantoprazole [Protonix TAB] 40 mg PO DAILY #30 tablet 08/02/17 Unknown Rx Triamter/Hctz 37.5-25 mg 1 each PO DAILY #30 tablet 08/02/17 Unknown Rx [Maxzide-25] HYDROcodone/APAP 7.5-325 [[place] 1 each PO Q8HR PRN #10 tablet 09/30/17 Unknown Rx 7.5-325 mg TAB] Ibuprofen [Motrin] 800 mg PO Q8HR PRN #15 tablet 09/30/17 Unknown Rx Levofloxacin [Levaquin TAB] 500 mg PO ONCE #10 tablet 09/30/17 Unknown Rx Ondansetron [Zofran TAB] 4 mg PO Q8HR PRN #15 tablet 09/30/17 Unknown Rx metroNIDAZOLE [Flagyl TAB] 500 mg PO ONCE #20 tablet 09/30/17 Unknown Rx Amoxicillin [Trimox CAP] 500 mg PO Q8H #21 capsule 11/30/17 Unknown Rx Carbamide Peroxide 6.5% [Ear Wax 5 drops OT BID #1 bottle 11/30/17 Unknown Rx Drops] Famotidine [Pepcid] 20 mg PO BID PRN #30 tablet 11/30/17 Unknown Rx Ibuprofen [Motrin] 800 mg PO Q8HR PRN #15 tablet 11/30/17 Unknown Rx Ondansetron [Zofran Odt] 4 mg PO Q8H PRN #12 tab.rapdis 11/30/17 Unknown Rx ED Physical Exam - General Limitations: No Limitations General appearance: alert, in no apparent distress - Head Head exam: Present: atraumatic, normocephalic - Eye Eye exam: Present: normal appearance, PERRL, EOMI - ENT ENT exam: Present: mucous membranes moist - Expanded ENT Exam Expanded TM/Canal exam: Erythema: Right TM, Left TM, Cerumen Impaction: Right TM, Left TM (partial cerumen impaction, TM is visible bilaterally, slight erythema right tympanic membrane is Dr. tenderness bilaterally) - Neck Neck exam: Present: normal inspection - Respiratory Respiratory exam: Present: normal lung sounds bilaterally. Absent: respiratory distress - Cardiovascular Cardiovascular Exam: Present: regular rate, normal rhythm. Absent: systolic murmur, diastolic murmur, rubs, gallop - GI/Abdominal GI/Abdominal exam: Present: soft, normal bowel sounds - Extremities Exam Extremities exam: Present: normal inspection - Back Exam Back exam: Present: normal inspection, full ROM - Neurological Exam Neurological exam: Present: alert, oriented X3, CN II-XII intact, normal gait - Psychiatric Psychiatric exam: Present: normal affect, normal mood - Skin Skin exam: Present: warm, dry, intact, normal color. Absent: rash ED Course Vital Signs 11/30/17 09:00 Temperature 98.4 F Pulse Rate 91 H Respiratory 16 Rate Blood Pressure 123/85 O2 Sat by Pulse 100 Oximetry ED Medical Decision Making - Lab Data Result diagrams: 11/30/17 09:44 11/30/17 09:45 - Medical Decision Making A/P: Menorrhagia, headache and nausea, otitis media, cerumen impaction 1-I emphasized importance of follow-up with [facility]. Possible differentials include uterine fibroids versus cyst. Patient's hemoglobin and hematocrit is within reasonable limits. 2-headache and nausea have significantly improved 3-Debrox drops, course of amoxicillin, Motrin when necessary, Zofran prn 4- discussed case with Dr. Montalvo before discharge Critical care attestation.: If time is entered above; I have spent that time in minutes in the direct care of this critically ill patient, excluding procedure time. ED Disposition Clinical Impression: Nausea Otitis media Qualifiers: Otitis media type: suppurative Chronicity: acute Laterality: right Recurrence: not specified as recurrent Spontaneous tympanic membrane rupture: without spontaneous rupture Qualified Code(s): H66.001 - Acute suppurative otitis media without spontaneous rupture of ear drum, right ear Menorrhagia Qualifiers: Menorrahagia type: premenopausal Qualified Code(s): N92.4 - Excessive bleeding in the premenopausal period Headache Qualifiers: Headache type: tension-type Headache chronicity pattern: acute headache Intractability: not intractable Qualified Code(s): G44.209 - Tension-type headache, unspecified, not intractable Disposition: DC-01 TO HOME OR SELFCARE Is pt being admited?: No Does the pt Need Aspirin: No Condition: Stable Instructions: Acute Headache (ED), Menorrhagia (ED), Otitis Media (ED), Acute Nausea and Vomiting (ED) Prescriptions: Amoxicillin [Trimox CAP] 500 mg PO Q8H #21 capsule Carbamide Peroxide 6.5% [Ear Wax Drops] 5 drops OT BID #1 bottle Famotidine [Pepcid] 20 mg PO BID PRN #30 tablet PRN Reason: Indigestion Ibuprofen [Motrin] 800 mg PO Q8HR PRN #15 tablet PRN Reason: Pain Ondansetron [Zofran Odt] 4 mg PO Q8H PRN #12 tab.rapdis PRN Reason: Nausea Referrals: LUPE LUJAN MD [Primary Care Provider] - 3-5 Days Forms: Work/School Release Form(ED) Time of Disposition: 12:45
[2017-11-30 11:49] LABS: Bilirubin,Urine NEG (Negative); Blood,Urine LG (Negative); Color,Urine Amber (Yellow); Mucus,Urine 3+ /HPF
[2017-11-30] MEDS ORDERED: K-DUR PO ONE (12:34)
[2017-11-30 13:18] VITALS: BP 128/74
== END 2017-11-30 13:18 | disposition home or self-care (01) ==
LOC: ED 08:48
DX: G44.209 Tension-type headache, unspecified, not intractable (principal); N92.4 Excessive bleeding in the premenopausal period; H66.001 Acute suppurative otitis media without spontaneous rupture of ear drum, right ear; R11.0 Nausea; I10 Essential (primary) hypertension; K21.9 Gastro-esophageal reflux disease without esophagitis
CPT/HCPCS: 36415; 80048; 80074; 81001; 82150; 83690; 83735; 84484; 84703; 85025; 86850; 86900; 86901; 96361; 96374; 96375; 99283; J2405; J2765; J7030

== ENCOUNTER 2018-10-04 19:58 | Emergency (ER) | payer OTHER | END 2018-10-04 22:05 | disposition left against medical advice (07) | LOC: ED 19:58 ==

== ENCOUNTER 2019-04-20 12:56 | Emergency (ER) | payer OTHER ==
[2019-04-20 13:09] VITALS: BP 131/81
--- NOTE | 2019-04-20 13:09 | Event Note ---
ED Screening Note Date of service: 04/20/19 Time: 13:06 ED Screening Note: This is a 48 y.o. F. that presents to the ER with chest discomfort, productive cough, chills, and headache x 3 days. PMH HTN Current smoker 2-4 cigarettes pd. LMP 02/24/2019 This initial assessment/diagnostic orders/clinical plan/treatment(s) is/are subject to change based on patients health status, clinical progression and re- assessment by fellow clinical providers in the ED. Further treatment and workup at subsequent clinical providers discretion. Patient/guardian urged not to elope from the ED as their condition may be serious if not clinically assessed and managed. Initial orders include: CXR
[2019-04-20] MEDS ORDERED: TESSALON PERLES PO ONE (14:30)
[2019-04-20] MEDS ORDERED: DUONEB *Not for PRN Use IH ONE (14:30)
[2019-04-20] MEDS ORDERED: DECADRON PO ONE (14:30)
--- NOTE | 2019-04-20 14:32 | XRay Report ---
CHEST 2 VIEWS INDICATION: cough and chest discomfort. COMPARISON: None FINDINGS: Support devices: None. Heart: Within normal limits. Lungs/pleura: No acute air space or interstitial disease. No pneumothorax. Additional findings: None. IMPRESSION: No acute findings. Signer Name: Micha Ayala Jr, MD Signed: 04/20/2019 2:27 PM Workstation Name: [id number]
--- NOTE | 2019-04-20 14:35 | Emergency Department Report ---
HPI - General Chief Complaint: Upper Respiratory Infection Time Seen by Provider: 04/20/19 13:06 - HPI HPI: 48-year-old female presents to the emergency department with a complaint of a 3 to four-day history of a mixed dry and productive cough, chest congestion, body aches, sore throat. She tried some tea with honey without much relief. She denies any tobacco use or any illicit drug use. The patient currently works in a daycare. She has a past medical history of acid reflux, hypertension, Crohn's disease. No recent travel or sick contacts at home. Her primary care physician is Dr. Garcia. ED Past Medical Hx - Past Medical History Previous Medical History?: Yes Hx Hypertension: Yes Hx Congestive Heart Failure: No Hx Diabetes: No Hx GERD: Yes Hx Sickle Cell Disease: No Hx Asthma: No Hx COPD: No Hx HIV: No Additional medical history: chrons. Sinus disease. UTI. Hemorrhoids - Surgical History Past Surgical History?: Yes Additional Surgical History: tubal ligation - Social History Smoking Status: Current Every Day Smoker - Medications Home Medications: Home Medications Medication Instructions Recorded Confirmed Last Taken Type Omeprazole [PriLOSEC] 40 mg PO QDAY 05/03/15 07/30/17 07/28/17 History Mesalamine [Pentasa] 1,000 mg PO 4XD 07/29/17 07/29/17 07/28/17 History Pantoprazole [Protonix TAB] 40 mg PO DAILY #30 tablet 08/02/17 Unknown Rx Triamter/Hctz 37.5-25 mg 1 each PO DAILY #30 tablet 08/02/17 Unknown Rx [Maxzide-25] HYDROcodone/APAP 7.5-325 [[place] 1 each PO Q8HR PRN #10 tablet 09/30/17 Unknown Rx 7.5-325 mg TAB] Ibuprofen [Motrin] 800 mg PO Q8HR PRN #15 tablet 09/30/17 Unknown Rx Ondansetron [Zofran TAB] 4 mg PO Q8HR PRN #15 tablet 09/30/17 Unknown Rx levoFLOXacin [Levaquin TAB] 500 mg PO ONCE #10 tablet 09/30/17 Unknown Rx metroNIDAZOLE [Flagyl TAB] 500 mg PO ONCE #20 tablet 09/30/17 Unknown Rx Amoxicillin [Trimox CAP] 500 mg PO Q8H #21 capsule 11/30/17 Unknown Rx Carbamide Peroxide 6.5% [Ear Wax 5 drops OT BID #1 bottle 11/30/17 Unknown Rx Drops] Famotidine [Pepcid] 20 mg PO BID PRN #30 tablet 11/30/17 Unknown Rx Ibuprofen [Motrin] 800 mg PO Q8HR PRN #15 tablet 11/30/17 Unknown Rx Ondansetron [Zofran Odt] 4 mg PO Q8H PRN #12 tab.rapdis 11/30/17 Unknown Rx ALBUTEROL Inhaler (OR & NICU) 2 puff IH QID PRN #1 inhalation 04/20/19 Unknown Rx [ProAir HFA Inhaler] guaiFENesin/CODEINE [Robitussin AC] 5 ml PO Q6H PRN #100 ml 04/20/19 Unknown Rx ED Review of Systems ROS: Stated complaint: CHEST PAIN Other details as noted in HPI Comment: All other systems reviewed and negative Constitutional: denies: chills, fever Eyes: denies: eye pain, vision change ENT: throat pain, congestion. denies: ear pain Respiratory: cough, wheezing Cardiovascular: denies: palpitations, edema Gastrointestinal: denies: abdominal pain, vomiting Genitourinary: denies: dysuria, frequency Musculoskeletal: myalgia. denies: joint swelling Skin: denies: rash, lesions Neurological: denies: headache, weakness Physical Exam - Physical Exam Vital Signs: Vital Signs 04/20/19 13:07 Temperature 98.7 F Pulse Rate 96 H Respiratory 18 Rate Blood Pressure 131/81 [Right] O2 Sat by Pulse 99 Oximetry Physical Exam: GENERAL: The patient is well-developed well-nourished. HENT: Normocephalic. Atraumatic. Patient has moist mucous membranes. Oropharynx is clear without tonsillar perjury, erythema or exudates. EYES: Extraocular motions are intact. Pupils equal reactive to light bilaterally. NECK: Supple. Trachea is midline. CHEST/LUNGS: Mild expiratory wheezing. A dry bronchospastic cough heard during examination. No tachypnea or accessory muscle use. There is no respiratory distress noted. HEART/CARDIOVASCULAR: Regular. There is no tachycardia. There is no murmur. ABDOMEN: Abdomen is soft, nontender. Patient has normal bowel sounds. There is no abdominal distention. SKIN: Skin is warm and dry. NEURO: The patient is awake, alert, and oriented. The patient is cooperative. The patient has no focal neurologic deficits. The patient has normal speech. MUSCULOSKELETAL: There is no tenderness or deformity. There is no evidence of acute injury. ED Course Vital Signs 04/20/19 13:07 Temperature 98.7 F Pulse Rate 96 H Respiratory 18 Rate Blood Pressure 131/81 [Right] O2 Sat by Pulse 99 Oximetry ED Medical Decision Making - Radiology Data Radiology results: image reviewed interpreted by me: Chest x-ray does not show any acute process. There are no pleural effusions, obvious pneumonia and there is no pneumothorax. - Medical Decision Making Patient presents with some body aches, sore throat, Dry and productive cough, and some chest wall pain with coughing. Chest x-ray did not show any acute pr ocess including any pneumonia, pneumothorax, focal consolidation, pleural effusions, or any other acute process. Negative rapid strep test. She was given a breathing treatment and a dose of Tessalon Perles. Upon reevaluation of this helped with many of her symptoms. Vital signs stable throughout her ED course. The patient most likely has a viral syndrome and some bronchitis. She'll be placed on an albuterol inhaler and given a prescription for Robitussin-AC. She was given a dose of Decadron here which will help her over the next 1-2 days. She is instructed to follow up with primary care and to return to the ER with any worsening of her symptoms or any acute distress. - Differential Diagnosis bronchitis, viral URI, strep pharyngitis, pneumonia Critical Care Time: No Critical care attestation.: If time is entered above; I have spent that time in minutes in the direct care of this critically ill patient, excluding procedure time. ED Disposition Clinical Impression: Bronchitis Upper respiratory infection Qualifiers: URI type: unspecified viral URI Qualified Code(s): J06.9 - Acute upper respiratory infection, unspecified Disposition: DC-01 TO HOME OR SELFCARE Is pt being admited?: No Condition: Stable Instructions: Upper Respiratory Infection (ED), Acute Bronchitis (ED) Additional Instructions: Please follow-up with your primary care physician in the next few days. Return to the emergency department with any worsening of your symptoms or any acute distress. You have been prescribed a medication that is sedating and therefore should not be taken prior to driving, working, and responsible for children and in no way should be mixed with alcohol of any quantity. Prescriptions: ALBUTEROL Inhaler (OR & NICU) [ProAir HFA Inhaler] 2 puff IH QID PRN #1 inhalation PRN Reason: Shortness Of Breath guaiFENesin/CODEINE [Robitussin AC] 5 ml PO Q6H PRN #100 ml PRN Reason: Cough Referrals: LUPE GARCIA MD [Primary Care Provider] - 2-3 Days Time of Disposition: 15:20
== END 2019-04-20 15:41 | disposition home or self-care (01) ==
LOC: ED 12:56
DX: J06.9 Acute upper respiratory infection, unspecified (principal); J40 Bronchitis, not specified as acute or chronic; I10 Essential (primary) hypertension; K21.0 Gastro-esophageal reflux disease with esophagitis; Z98.890 Other specified postprocedural states; Z98.51 Tubal ligation status; F17.200 Nicotine dependence, unspecified, uncomplicated; Z79.899 Other long term (current) drug therapy
CPT/HCPCS: 71046; 87116; 87430; 94640; 99284; J8540; 94644

== ENCOUNTER 2019-08-30 21:29 | Emergency (ER) | payer SELFPAY ==
--- NOTE | 2019-08-30 21:57 | Event Note ---
ED Screening Note Date of service: 08/30/19 Time: 21:55 ED Screening Note: 49 y o female presents with right breast pain and swelling x 3 days no trauma to the breast This initial assessment/diagnostic orders/clinical plan/treatment(s) is/are subject to change based on patients health status, clinical progression and re- assessment by fellow clinical providers in the ED. Further treatment and workup at subsequent clinical providers discretion. Patient/guardian urged not to elope from the ED as their condition may be serious if not clinically assessed and managed. Initial orders include: evaluate for abscess acc eval
--- NOTE | 2019-08-31 02:04 | Emergency Department Report ---
ED General Adult HPI - General Chief complaint: Urogenital-Female Stated complaint: RIGHT BREAST PAIN Time Seen by Provider: 08/31/19 01:32 Source: patient Mode of arrival: Ambulatory Limitations: No Limitations - History of Present Illness Initial comments: 49-year-old -[place]ones[place] female patient with history of Crohn's disease presents with complaints of painful right breast nodule 2 weeks. She states the nodule increased in size and pain after her boyfriend tempted to drain it by squeezing it. She states she has been having nausea, chills and tactile fevers and believes that she is about to have a Crohn's flare. Patient states she is currently on immunosuppressive medications for her Crohn's follows closely with her GI specialist. She denies any hematochezia, abdominal pain, or stool changes. -: Sudden - Related Data Home Medications Medication Instructions Recorded Confirmed Last Taken Omeprazole [PriLOSEC] 40 mg PO QDAY 05/03/15 07/30/17 07/28/17 Mesalamine [Pentasa] 1,000 mg PO 4XD 07/29/17 07/29/17 07/28/17 Previous Rx's Medication Instructions Recorded Last Taken Type Pantoprazole [Protonix TAB] 40 mg PO DAILY #30 tablet 08/02/17 Unknown Rx Triamter/Hctz 37.5-25 mg 1 each PO DAILY #30 tablet 08/02/17 Unknown Rx [Maxzide-25] HYDROcodone/APAP 7.5-325 [[place] 1 each PO Q8HR PRN #10 tablet 09/30/17 Unknown Rx 7.5-325 mg TAB] Ibuprofen [Motrin] 800 mg PO Q8HR PRN #15 tablet 09/30/17 Unknown Rx Ondansetron [Zofran TAB] 4 mg PO Q8HR PRN #15 tablet 09/30/17 Unknown Rx levoFLOXacin [Levaquin TAB] 500 mg PO ONCE #10 tablet 09/30/17 Unknown Rx Amoxicillin [Trimox CAP] 500 mg PO Q8H #21 capsule 11/30/17 Unknown Rx Carbamide Peroxide 6.5% [Ear Wax 5 drops OT BID #1 bottle 11/30/17 Unknown Rx Drops] Famotidine [Pepcid] 20 mg PO BID PRN #30 tablet 11/30/17 Unknown Rx Ibuprofen [Motrin] 800 mg PO Q8HR PRN #15 tablet 11/30/17 Unknown Rx Ondansetron [Zofran Odt] 4 mg PO Q8H PRN #12 tab.rapdis 11/30/17 Unknown Rx ALBUTEROL Inhaler (OR & NICU) 2 puff IH QID PRN #1 inhalation 04/20/19 Unknown Rx [ProAir HFA Inhaler] guaiFENesin/CODEINE [Robitussin AC] 5 ml PO Q6H PRN #100 ml 04/20/19 Unknown Rx Prednisone [predniSONE 5 mg (6-Day 5 mg PO .TAPER #1 tab.ds.pk 08/31/19 Unknown Rx Pack, 21 Tabs)] metroNIDAZOLE [Flagyl TAB] 500 mg PO Q8HR 3 Days #9 tablet 08/31/19 Unknown Rx Allergies Allergy/AdvReac Type Severity Reaction Status Date / Time No Known Allergies Allergy Verified 04/20/19 13:09 ED Review of Systems ROS: Stated complaint: RIGHT BREAST PAIN Other details as noted in HPI Constitutional: chills, fever Respiratory: wheezing. denies: cough, shortness of breath Cardiovascular: denies: chest pain, edema, syncope Gastrointestinal: nausea. denies: abdominal pain, vomiting, diarrhea, constipation, hematemesis, melena, hematochezia Genitourinary: denies: urgency, dysuria, frequency, hematuria, discharge Musculoskeletal: denies: back pain Skin: lesions. denies: rash, change in color Neurological: denies: headache, weakness, paresthesias ED Past Medical Hx - Past Medical History Previous Medical History?: Yes Hx Hypertension: Yes Hx Congestive Heart Failure: No Hx Diabetes: No Hx GERD: Yes Hx Sickle Cell Disease: No Hx Asthma: No Hx COPD: No Hx HIV: No Additional medical history: chrons. Sinus disease. UTI. Hemorrhoids - Surgical History Past Surgical History?: No Additional Surgical History: tubal ligation - Social History Smoking Status: Current Every Day Smoker Substance Use Type: Alcohol - Medications Home Medications: Home Medications Medication Instructions Recorded Confirmed Last Taken Type Omeprazole [PriLOSEC] 40 mg PO QDAY 05/03/15 07/30/17 07/28/17 History Mesalamine [Pentasa] 1,000 mg PO 4XD 07/29/17 07/29/17 07/28/17 History Pantoprazole [Protonix TAB] 40 mg PO DAILY #30 tablet 08/02/17 Unknown Rx Triamter/Hctz 37.5-25 mg 1 each PO DAILY #30 tablet 08/02/17 Unknown Rx [Maxzide-25] HYDROcodone/APAP 7.5-325 [[place] 1 each PO Q8HR PRN #10 tablet 09/30/17 Unknown Rx 7.5-325 mg TAB] Ibuprofen [Motrin] 800 mg PO Q8HR PRN #15 tablet 09/30/17 Unknown Rx Ondansetron [Zofran TAB] 4 mg PO Q8HR PRN #15 tablet 09/30/17 Unknown Rx levoFLOXacin [Levaquin TAB] 500 mg PO ONCE #10 tablet 09/30/17 Unknown Rx Amoxicillin [Trimox CAP] 500 mg PO Q8H #21 capsule 11/30/17 Unknown Rx Carbamide Peroxide 6.5% [Ear Wax 5 drops OT BID #1 bottle 11/30/17 Unknown Rx Drops] Famotidine [Pepcid] 20 mg PO BID PRN #30 tablet 11/30/17 Unknown Rx Ibuprofen [Motrin] 800 mg PO Q8HR PRN #15 tablet 11/30/17 Unknown Rx Ondansetron [Zofran Odt] 4 mg PO Q8H PRN #12 tab.rapdis 11/30/17 Unknown Rx ALBUTEROL Inhaler (OR & NICU) 2 puff IH QID PRN #1 inhalation 04/20/19 Unknown Rx [ProAir HFA Inhaler] guaiFENesin/CODEINE [Robitussin AC] 5 ml PO Q6H PRN #100 ml 04/20/19 Unknown Rx Prednisone [predniSONE 5 mg (6-Day 5 mg PO .TAPER #1 tab.ds.pk 08/31/19 Unknown Rx Pack, 21 Tabs)] metroNIDAZOLE [Flagyl TAB] 500 mg PO Q8HR 3 Days #9 tablet 08/31/19 Unknown Rx ED Physical Exam - General Limitations: No Limitations General appearance: alert, in no apparent distress - Head Head exam: Present: atraumatic, normocephalic - Eye Eye exam: Present: normal appearance. Absent: scleral icterus - Respiratory Respiratory exam: Present: normal lung sounds bilaterally. Absent: respiratory distress - Cardiovascular Cardiovascular Exam: Present: regular rate, normal rhythm - GI/Abdominal GI/Abdominal exam: Present: soft, normal bowel sounds. Absent: distended, tenderness, guarding, rebound, rigid - Neurological Exam Neurological exam: Present: alert, oriented X3 - Psychiatric Psychiatric exam: Present: normal affect, normal mood - Skin Skin exam: Present: warm, dry, normal color, other (<1 cm superficial nodule noted at ~5 pm on right breast. Nodule is tender to palpation without surrounding erythema or swelling. Small break in skin noted at top of nodulepatient states this occurred after her boyfriend attempted to drain the nodule). Absent: rash, diaphoretic, erythema, vesicles ED Course Vital Signs 08/30/19 21:35 Temperature 98.4 F Pulse Rate 103 H Respiratory 16 Rate Blood Pressure 154/91 O2 Sat by Pulse 100 Oximetry ED Medical Decision Making - Medical Decision Making 49-year-old female patient here with complaints of right breast nodule an intermittent tactile fevers and chills and nausea. No abscess noted on exam of stress. Recommend patient follows up with her PCP concerning nodule in breast. Vitals are WNL. Recommended blood work with CBC and CMPpatient declines and states that she has to work early in the morning and will like to go home. Recommend patient follows up with her GI specialist given she feels as if she is about to be a Crohn's flare. Patient informed to return to ED if she develops abdominal pain, hematochezia, continued fever, or other new concerning symptoms. Patient verbalizes understanding. Critical care attestation.: If time is entered above; I have spent that time in minutes in the direct care of this critically ill patient, excluding procedure time. ED Disposition Clinical Impression: Breast mass, right, Nausea, Chills Disposition: - TO HOME OR SELFCARE Is pt being admited?: No Condition: Stable Instructions: Breast Mass (ED) Prescriptions: metroNIDAZOLE [Flagyl TAB] 500 mg PO Q8HR 3 Days #9 tablet Prednisone [predniSONE 5 mg (6-Day Pack, 21 Tabs)] 5 mg PO .TAPER #1 tab.ds.pk Referrals: LUPE LUJAN MD [Primary Care Provider] - 2-3 Days
[2019-08-31 02:35] VITALS: BP 149/92
== END 2019-08-31 02:33 | disposition home or self-care (01) ==
LOC: ED 21:29
DX: N63.10 Unspecified lump in the right breast, unspecified quadrant (principal); R11.0 Nausea; R50.9 Fever, unspecified; Z79.899 Other long term (current) drug therapy

== ENCOUNTER 2019-10-17 12:48 | Emergency (ER) | payer OTHER ==
[2019-10-17 13:25] VITALS: BP 145/89
--- NOTE | 2019-10-17 13:30 | Emergency Department Report ---
Upper Respiratory HPI - HPI Chief Complaint: Upper Respiratory Infection Stated Complaint: FLU SYM Time Seen by Provider: 10/17/19 13:24 Duration: 1 week URI Symptoms: Rhinorrhea: Yes, Sore Throat: No, Ear Pain: No, Cough: Yes, Shortness of Breath: No, Sick Contacts: No, Unable to Take Fluids: No, Urine Output Abnormal: No, Listless Behavior: No Other History: This is a 49-year-old [facility] with no [facility] of distress presents with dry nonproductive cough, rhinnorrhea, sore throat x1 week. Patient denies any chest pain, shortness of breathe, fever, chills, nausea, vomiting, headache, stiff neck, abdominal pain, numbness or tingling. Patient denies any recent travels, long car rides, or recent hospital stays. Denies any allergies or significant PMH. - Home Meds and Allergies Home Medications: Home Medications Medication Instructions Recorded Confirmed Last Taken Omeprazole [PriLOSEC] 40 mg PO QDAY 05/03/15 07/30/17 07/28/17 Mesalamine [Pentasa] 1,000 mg PO 4XD 07/29/17 07/29/17 07/28/17 Previous Rx's Medication Instructions Recorded Last Taken Type Pantoprazole [Protonix TAB] 40 mg PO DAILY #30 tablet 08/02/17 Unknown Rx Triamter/Hctz 37.5-25 mg 1 each PO DAILY #30 tablet 08/02/17 Unknown Rx [Maxzide-25] HYDROcodone/APAP 7.5-325 [[place] 1 each PO Q8HR PRN #10 tablet 09/30/17 Unknown Rx 7.5-325 mg TAB] Ibuprofen [Motrin] 800 mg PO Q8HR PRN #15 tablet 09/30/17 Unknown Rx Ondansetron [Zofran TAB] 4 mg PO Q8HR PRN #15 tablet 09/30/17 Unknown Rx levoFLOXacin [Levaquin TAB] 500 mg PO ONCE #10 tablet 09/30/17 Unknown Rx Amoxicillin [Trimox CAP] 500 mg PO Q8H #21 capsule 11/30/17 Unknown Rx Carbamide Peroxide 6.5% [Ear Wax 5 drops OT BID #1 bottle 11/30/17 Unknown Rx Drops] Famotidine [Pepcid] 20 mg PO BID PRN #30 tablet 11/30/17 Unknown Rx Ibuprofen [Motrin] 800 mg PO Q8HR PRN #15 tablet 11/30/17 Unknown Rx Ondansetron [Zofran Odt] 4 mg PO Q8H PRN #12 tab.rapdis 11/30/17 Unknown Rx Albuterol INH(or & Nicu Only) 2 puff IH QID PRN #1 inhalation 04/20/19 Unknown Rx [ProAir HFA Inhaler] guaiFENesin/CODEINE [Robitussin AC] 5 ml PO Q6H PRN #100 ml 04/20/19 Unknown Rx Prednisone [predniSONE 5 mg (6-Day 5 mg PO .TAPER #1 tab.ds.pk 08/31/19 Unknown Rx Pack, 21 Tabs)] metroNIDAZOLE [Flagyl TAB] 500 mg PO Q8HR 3 Days #9 tablet 08/31/19 Unknown Rx Azithromycin [Zithromax Z-DILAN] 250 mg PO DAILY #6 tablet 10/17/19 Unknown Rx Benzonatate [Tessalon Perles] 100 mg PO Q8HR PRN #20 capsule 10/17/19 Unknown Rx Allergies/Adverse Reactions: Allergies Allergy/AdvReac Type Severity Reaction Status Date / Time No Known Allergies Allergy Verified 04/20/19 13:09 ED Review of Systems ROS: Stated complaint: FLU SYM Other details as noted in HPI Constitutional: denies: chills, fever Eyes: denies: eye pain, eye discharge, vision change ENT: throat pain, congestion. denies: ear pain Respiratory: cough. denies: shortness of breath, wheezing Cardiovascular: denies: chest pain, palpitations Endocrine: no symptoms reported Gastrointestinal: denies: abdominal pain, nausea, diarrhea Genitourinary: denies: urgency, dysuria, discharge Musculoskeletal: denies: back pain, joint swelling, arthralgia Skin: denies: rash, lesions Neurological: denies: headache, weakness, paresthesias Psychiatric: denies: anxiety, depression Hematological/Lymphatic: denies: easy bleeding, easy bruising ED Past Medical Hx - Past Medical History Previous Medical History?: Yes Hx Hypertension: Yes Hx Congestive Heart Failure: No Hx Diabetes: No Hx GERD: Yes Hx Sickle Cell Disease: No Hx Asthma: No Hx COPD: No Hx HIV: No Additional medical history: chrons. Sinus disease. UTI. Hemorrhoids - Surgical History Past Surgical History?: Yes Additional Surgical History: tubal ligation - Social History Smoking Status: Current Every Day Smoker Substance Use Type: Alcohol - Medications Home Medications: Home Medications Medication Instructions Recorded Confirmed Last Taken Type Omeprazole [PriLOSEC] 40 mg PO QDAY 05/03/15 07/30/17 07/28/17 History Mesalamine [Pentasa] 1,000 mg PO 4XD 07/29/17 07/29/17 07/28/17 History Pantoprazole [Protonix TAB] 40 mg PO DAILY #30 tablet 08/02/17 Unknown Rx Triamter/Hctz 37.5-25 mg 1 each PO DAILY #30 tablet 08/02/17 Unknown Rx [Maxzide-25] HYDROcodone/APAP 7.5-325 [[place] 1 each PO Q8HR PRN #10 tablet 09/30/17 Unknown Rx 7.5-325 mg TAB] Ibuprofen [Motrin] 800 mg PO Q8HR PRN #15 tablet 09/30/17 Unknown Rx Ondansetron [Zofran TAB] 4 mg PO Q8HR PRN #15 tablet 09/30/17 Unknown Rx levoFLOXacin [Levaquin TAB] 500 mg PO ONCE #10 tablet 09/30/17 Unknown Rx Amoxicillin [Trimox CAP] 500 mg PO Q8H #21 capsule 11/30/17 Unknown Rx Carbamide Peroxide 6.5% [Ear Wax 5 drops OT BID #1 bottle 11/30/17 Unknown Rx Drops] Famotidine [Pepcid] 20 mg PO BID PRN #30 tablet 11/30/17 Unknown Rx Ibuprofen [Motrin] 800 mg PO Q8HR PRN #15 tablet 11/30/17 Unknown Rx Ondansetron [Zofran Odt] 4 mg PO Q8H PRN #12 tab.rapdis 11/30/17 Unknown Rx Albuterol INH(or & Nicu Only) 2 puff IH QID PRN #1 inhalation 04/20/19 Unknown Rx [ProAir HFA Inhaler] guaiFENesin/CODEINE [Robitussin AC] 5 ml PO Q6H PRN #100 ml 04/20/19 Unknown Rx Prednisone [predniSONE 5 mg (6-Day 5 mg PO .TAPER #1 tab.ds.pk 08/31/19 Unknown Rx Pack, 21 Tabs)] metroNIDAZOLE [Flagyl TAB] 500 mg PO Q8HR 3 Days #9 tablet 08/31/19 Unknown Rx Azithromycin [Zithromax Z-DILAN] 250 mg PO DAILY #6 tablet 10/17/19 Unknown Rx Benzonatate [Tessalon Perles] 100 mg PO Q8HR PRN #20 capsule 10/17/19 Unknown Rx ED Bronchiolitis Physical Exam - Exam General: Vital signs noted. No distress. Alert and acting appropriately. Neurologic: Alert and oriented, no deficits. Musculoskeletal: Unremarkable. ED Physical Exam - General Limitations: No Limitations General appearance: alert, in no apparent distress - Head Head exam: Present: atraumatic, normocephalic - Eye Eye exam: Present: normal appearance - Expanded ENT Exam Expanded Ear exam: Present: normal external inspection Mouth exam: Present: normal external inspection. Absent: drooling, trismus, muffled voice Teeth exam: Present: normal inspection Throat exam: Positive: tonsillar erythema, other (uvula midline). Negative: tonsillomegaly, tonsillar exudate, R peritonsillar mass, L peritonsillar mass - Neck Neck exam: Present: normal inspection, full ROM. Absent: tenderness, meningismus, lymphadenopathy - Respiratory Respiratory exam: Present: normal lung sounds bilaterally. Absent: respiratory distress, wheezes, rales, rhonchi, stridor, chest wall tenderness, accessory muscle use, decreased breath sounds, prolonged expiratory - Cardiovascular Cardiovascular Exam: Present: regular rate, normal rhythm, normal heart sounds. Absent: bradycardia, tachycardia, irregular rhythm, systolic murmur, diastolic murmur, rubs, gallop - Extremities Exam Extremities exam: Present: normal inspection, full ROM - Back Exam Back exam: Present: normal inspection, full ROM - Neurological Exam Neurological exam: Present: alert, oriented X3, normal gait - Psychiatric Psychiatric exam: Present: normal affect, normal mood - Skin Skin exam: Present: warm, dry, intact, normal color. Absent: rash ED Course Vital Signs 10/17/19 13:23 Temperature 97.9 F Pulse Rate 89 Respiratory 20 Rate Blood Pressure 145/89 O2 Sat by Pulse 100 Oximetry - Reevaluation(s) Reevaluation #1: 10/17/19 13:27 Patient is speaking in full sentences with no signs of distress noted. ED Medical Decision Making - Medical Decision Making 49-year-old female that presents with pharyngitis and bronchitis like symptoms. Patient is stable and was examined by me. Will treat empirecally with Zpack due to continuing and worsening of symptoms. Vital signs are stable. Patient was instructed to Follow-up with a primary care doctor in 3-5 days or if symptoms worsen and continue return to emergency room as soon as possible. At time of discharge, the patient does not seem toxic or ill in appearance. No acute signs of distress noted. Patient agrees to discharge treatment plan of care. No further questions noted by the patient. Critical care attestation.: If time is entered above; I have spent that time in minutes in the direct care of this critically ill patient, excluding procedure time. ED Disposition Clinical Impression: Bronchitis Pharyngitis Qualifiers: Pharyngitis/tonsillitis etiology: unspecified etiology Qualified Code(s): J02.9 - Acute pharyngitis, unspecified Disposition: DC- TO HOME OR SELFCARE Is pt being admited?: No Does the pt Need Aspirin: No Condition: Stable Instructions: Acute Bronchitis (ED) Additional Instructions: Follow-up with a primary care doctor in 3-5 days or if symptoms worsen and continue return to emergency room as soon as possible. Prescriptions: Benzonatate [Tessalon Perles] 100 mg PO Q8HR PRN #20 capsule PRN Reason: Cough Azithromycin [Zithromax Z-DILAN] 250 mg PO DAILY #6 tablet Referrals: PRIMARY MD WILMA [Referring] - 3-5 Days NENA PANDA MD [Staff Physician] - 3-5 Days [facility] [Outside] - 3-5 Days Forms: Work/School Release Form(ED)
== END 2019-10-17 14:08 | disposition home or self-care (01) ==
LOC: ED 12:48
DX: J40 Bronchitis, not specified as acute or chronic (principal); J02.9 Acute pharyngitis, unspecified; I10 Essential (primary) hypertension; K21.9 Gastro-esophageal reflux disease without esophagitis; F17.200 Nicotine dependence, unspecified, uncomplicated; Z98.51 Tubal ligation status; Z79.1 Long term (current) use of non-steroidal anti-inflammatories (NSAID); Z79.899 Other long term (current) drug therapy
CPT/HCPCS: 99282

== ENCOUNTER 2020-05-10 14:49 | Emergency (ER) | payer OTHER ==
[2020-05-10] MEDS ORDERED: ASPIRIN 325 MG TAB PO ONE (17:02)
--- NOTE | 2020-05-10 18:24 | XRay Report ---
CHEST 1 VIEW INDICATION / CLINICAL INFORMATION: Chest Pain. FINDINGS: SUPPORT DEVICES: None. HEART / MEDIASTINUM: No significant abnormality. LUNGS / PLEURA: No significant pulmonary or pleural abnormality. No pneumothorax. ADDITIONAL FINDINGS: No significant additional findings. IMPRESSION: 1. No acute findings. Signer Name: Royal Goodwin MD Signed: 05/10/2020 6:19 PM Workstation Name: [id number]
[2020-05-10 18:27] LABS: Basophils # (Auto) 0.1 K/mm3 (0.0-0.1); Basophils % (Auto) 1.6 % (0.0-1.8); Eosinophils # (Auto) 0.1 K/mm3 (0.0-0.4); Eosinophils % (Auto) 1.7 % (0.0-4.3); Hematocrit 38.6 % (30.3-42.9); Hemoglobin 13.1 gm/dl (10.1-14.3); Lymphocytes # (Auto) 2.1 K/mm3 (1.2-5.4); Lymphocytes % (Auto) 25.9 % (13.4-35.0); Mean Corpuscular HGB Conc 34 % (30-34); Mean Corpuscular Volume 99 fl (79-97); Monocytes # (Auto) 0.3 K/mm3 (0.0-0.8); Monocytes % (Auto) 3.3 % (0.0-7.3); Platelet Count 414 K/mm3 (140-440); Red Blood Count 3.91 M/mm3 (3.65-5.03); Red Cell Distribution Width 16.9 % (13.2-15.2)
[2020-05-10 18:40] LABS: Blood Urea Nitrogen 12 mg/dL (7-17); Calcium 9.9 mg/dL (8.4-10.2); Hemolysis Index 13
[2020-05-10 19:02] LABS: BUN/Creatinine Ratio 17
--- NOTE | 2020-05-11 00:37 | Emergency Department Report ---
ED Chest Pain HPI - General Chief Complaint: Chest Pain Stated Complaint: CHEST PAIN , HEADACHE Time Seen by Provider: 05/11/20 00:05 Source: patient Mode of arrival: Ambulatory Limitations: No Limitations - History of Present Illness Initial Comments: Patient is 50 years old female with history of hypertension and sinusitis. Patient presented to the ER complaining of chest pain described as aching sensation started when she started itching and sneezing. Patient described her pain as upper chest on both side. Patient stated the pain completely resolved now. Patient denied any fever or chills. No cough or shortness of breath. MD Complaint: chest pain -: This afternoon Onset: during rest Pain Location: substernal Severity scale (0 -10): 0 Quality: aching - Related Data Home Medications Medication Instructions Recorded Confirmed Last Taken Omeprazole [PriLOSEC] 40 mg PO QDAY 05/03/15 07/30/17 07/28/17 Mesalamine [Pentasa] 1,000 mg PO 4XD 07/29/17 07/29/17 07/28/17 Previous Rx's Medication Instructions Recorded Last Taken Type Pantoprazole [Protonix TAB] 40 mg PO DAILY #30 tablet 08/02/17 Unknown Rx Triamter/Hctz 37.5-25 mg 1 each PO DAILY #30 tablet 08/02/17 Unknown Rx [Maxzide-25] HYDROcodone/APAP 7.5-325 [[place] 1 each PO Q8HR PRN #10 tablet 09/30/17 Unknown Rx 7.5-325 mg TAB] Ibuprofen [Motrin] 800 mg PO Q8HR PRN #15 tablet 09/30/17 Unknown Rx Ondansetron [Zofran TAB] 4 mg PO Q8HR PRN #15 tablet 09/30/17 Unknown Rx levoFLOXacin [Levaquin TAB] 500 mg PO ONCE #10 tablet 09/30/17 Unknown Rx Amoxicillin [Trimox CAP] 500 mg PO Q8H #21 capsule 11/30/17 Unknown Rx Carbamide Peroxide 6.5% [Ear Wax 5 drops OT BID #1 bottle 11/30/17 Unknown Rx Drops] Famotidine [Pepcid] 20 mg PO BID PRN #30 tablet 11/30/17 Unknown Rx Ibuprofen [Motrin] 800 mg PO Q8HR PRN #15 tablet 11/30/17 Unknown Rx Ondansetron [Zofran Odt] 4 mg PO Q8H PRN #12 tab.rapdis 11/30/17 Unknown Rx Albuterol Mdi (or & Nicu Only) 2 puff IH QID PRN #1 inhalation 04/20/19 Unknown Rx [ProAir HFA Inhaler] guaiFENesin/CODEINE [Robitussin AC] 5 ml PO Q6H PRN #100 ml 04/20/19 Unknown Rx Prednisone [predniSONE 5 mg (6-Day 5 mg PO .TAPER #1 tab.ds.pk 08/31/19 Unknown Rx Pack, 21 Tabs)] metroNIDAZOLE [Flagyl TAB] 500 mg PO Q8HR 3 Days #9 tablet 08/31/19 Unknown Rx Azithromycin [Zithromax Z-DILAN] 250 mg PO DAILY #6 tablet 10/17/19 Unknown Rx Benzonatate [Tessalon Perles] 100 mg PO Q8HR PRN #20 capsule 10/17/19 Unknown Rx Cetirizine HCl 10 mg PO QDAY #30 tablet 02/29/20 Unknown Rx Oxymetazoline HCl [Nasal 1 spray NS QHS #1 bottle 02/29/20 Unknown Rx Decongestant] Sulfamethoxazole/Trimethoprim 1 each PO BID 10 Days #20 tablet 02/29/20 Unknown Rx [Bactrim DS TAB] Allergies Allergy/AdvReac Type Severity Reaction Status Date / Time No Known Allergies Allergy Verified 04/20/19 13:09 Heart Score - HEART Score History: Slightly suspicious EKG: Normal Age: 45-65 Risk factors: 1-2 risk factors Troponin: < normal limit HEART Score: 2 - Critical Actions Critical Actions: 0-3 pts:0.9-1.7%risk of adverse cardiac event.Candidate for discharge ED Review of Systems ROS: Stated complaint: CHEST PAIN , HEADACHE Other details as noted in HPI Comment: All other systems reviewed and negative Constitutional: denies: chills, fever ENT: denies: throat pain Respiratory: denies: cough, orthopnea, shortness of breath, SOB with exertion, SOB at rest Cardiovascular: chest pain. denies: palpitations, dyspnea on exertion Gastrointestinal: denies: abdominal pain, nausea, vomiting, diarrhea, constipation, hematemesis, hematochezia Musculoskeletal: denies: back pain Neurological: denies: headache, weakness, numbness, paresthesias, confusion, abnormal gait ED Past Medical Hx - Past Medical History Previous Medical History?: Yes Hx Hypertension: Yes Hx Congestive Heart Failure: No Hx Diabetes: No Hx GERD: Yes Hx Sickle Cell Disease: No Hx Asthma: No Hx COPD: No Hx HIV: No Additional medical history: chrons. Sinus disease. UTI. Hemorrhoids - Surgical History Past Surgical History?: Yes Additional Surgical History: tubal ligation - Social History Smoking Status: Never Smoker Substance Use Type: None - Medications Home Medications: Home Medications Medication Instructions Recorded Confirmed Last Taken Type Omeprazole [PriLOSEC] 40 mg PO QDAY 05/03/15 07/30/17 07/28/17 History Mesalamine [Pentasa] 1,000 mg PO 4XD 07/29/17 07/29/17 07/28/17 History Pantoprazole [Protonix TAB] 40 mg PO DAILY #30 tablet 08/02/17 Unknown Rx Triamter/Hctz 37.5-25 mg 1 each PO DAILY #30 tablet 08/02/17 Unknown Rx [Maxzide-25] HYDROcodone/APAP 7.5-325 [[place] 1 each PO Q8HR PRN #10 tablet 09/30/17 Unknown Rx 7.5-325 mg TAB] Ibuprofen [Motrin] 800 mg PO Q8HR PRN #15 tablet 09/30/17 Unknown Rx Ondansetron [Zofran TAB] 4 mg PO Q8HR PRN #15 tablet 09/30/17 Unknown Rx levoFLOXacin [Levaquin TAB] 500 mg PO ONCE #10 tablet 09/30/17 Unknown Rx Amoxicillin [Trimox CAP] 500 mg PO Q8H #21 capsule 11/30/17 Unknown Rx Carbamide Peroxide 6.5% [Ear Wax 5 drops OT BID #1 bottle 11/30/17 Unknown Rx Drops] Famotidine [Pepcid] 20 mg PO BID PRN #30 tablet 11/30/17 Unknown Rx Ibuprofen [Motrin] 800 mg PO Q8HR PRN #15 tablet 11/30/17 Unknown Rx Ondansetron [Zofran Odt] 4 mg PO Q8H PRN #12 tab.rapdis 11/30/17 Unknown Rx Albuterol Mdi (or & Nicu Only) 2 puff IH QID PRN #1 inhalation 04/20/19 Unknown Rx [ProAir HFA Inhaler] guaiFENesin/CODEINE [Robitussin AC] 5 ml PO Q6H PRN #100 ml 04/20/19 Unknown Rx Prednisone [predniSONE 5 mg (6-Day 5 mg PO .TAPER #1 tab.ds.pk 08/31/19 Unknown Rx Pack, 21 Tabs)] metroNIDAZOLE [Flagyl TAB] 500 mg PO Q8HR 3 Days #9 tablet 08/31/19 Unknown Rx Azithromycin [Zithromax Z-DILAN] 250 mg PO DAILY #6 tablet 10/17/19 Unknown Rx Benzonatate [Tessalon Perles] 100 mg PO Q8HR PRN #20 capsule 10/17/19 Unknown Rx Cetirizine HCl 10 mg PO QDAY #30 tablet 02/29/20 Unknown Rx Oxymetazoline HCl [Nasal 1 spray NS QHS #1 bottle 02/29/20 Unknown Rx Decongestant] Sulfamethoxazole/Trimethoprim 1 each PO BID 10 Days #20 tablet 02/29/20 Unknown Rx [Bactrim DS TAB] ED Physical Exam - General Limitations: No Limitations General appearance: alert, in no apparent distress - Head Head exam: Present: atraumatic, normocephalic, normal inspection - Eye Eye exam: Present: normal appearance - ENT ENT exam: Present: normal exam, normal orophraynx, mucous membranes moist - Neck Neck exam: Present: normal inspection, full ROM. Absent: tenderness, men ingismus, lymphadenopathy, thyromegaly - Respiratory Respiratory exam: Present: normal lung sounds bilaterally - Cardiovascular Cardiovascular Exam: Present: regular rate, normal rhythm, normal heart sounds - GI/Abdominal GI/Abdominal exam: Present: soft, normal bowel sounds. Absent: distended, tenderness, guarding, rebound, rigid, organomegaly, mass, bruit, pulsatile mass, hernia - Extremities Exam Extremities exam: Present: normal inspection, full ROM, normal capillary refill. Absent: pedal edema, calf tenderness - Back Exam Back exam: Present: normal inspection, full ROM. Absent: CVA tenderness (R), CVA tenderness (L) - Neurological Exam Neurological exam: Present: alert, oriented X3, CN II-XII intact, normal gait, reflexes normal - Psychiatric Psychiatric exam: Present: normal mood - Skin Skin exam: Present: warm, intact, normal color ED Course Vital Signs 05/10/20 15:00 Temperature 98.2 F Pulse Rate 63 Respiratory 18 Rate Blood Pressure 139/85 O2 Sat by Pulse 100 Oximetry PORFIRIO score - Porfirio Score Age > 65: (0) No Aspirin use within the Past 7 Days: (0) No 3 or more CAD Risk Factors: (0) No 2 or more Angina events in past 24 hrs: (0) No Known CAD with more than 50% Stenosis: (0) No Elevated Cardiac Markers: (0) No ST Deviation Greater than 0.5mm: (0) No PORFIRIO Score: 0 ED Medical Decision Making - Lab Data Result diagrams: 05/10/20 18:10 05/10/20 18:10 - EKG Data -: EKG Interpreted by Ok EKG shows normal: sinus rhythm Rate: normal - EKG Data Interpretation: no acute changes - Radiology Data Radiology results: report reviewed - Medical Decision Making Patient is 50 years old female with history of hypertension and sinusitis. Patient presented to the ER complaining of chest pain described as aching sensation started when she started itching and sneezing. Patient described her pain as upper chest on both side. Patient stated the pain completely resolved now. Patient denied any fever or chills. No cough or shortness of breath. EKG showed no ST elevation or depression. Chest x-ray is unremarkable. Labs reviewed and is unremarkable including a negative troponin x2. Patient symptoms is most likely musculoskeletal in nature however patient advised to follow-up with her primary care physician in the next 2 to 3 days for outpatient cardiac test. Patient also advised to return to the ER if her symptoms get worse. Critical care attestation.: If time is entered above; I have spent that time in minutes in the direct care of this critically ill patient, excluding procedure time. ED Disposition Clinical Impression: Chest pain, Sinusitis Disposition: DC-01 TO HOME OR SELFCARE Is pt being admited?: No Condition: Stable Instructions: Chest Pain (ED), Acute Bacterial Rhinosinusitis (ED) Referrals: LUPE LUJAN MD [Primary Care Provider] - 3-5 Days
[2020-05-11 00:42] VITALS: BP 162/85
== END 2020-05-11 01:00 | disposition home or self-care (01) ==
LOC: ED 14:49
DX: J01.80 Other acute sinusitis (principal); R07.89 Other chest pain
CPT/HCPCS: 36415; 71045; 80048; 84484; 85025; 93005

== ENCOUNTER 2020-11-29 13:45 | Emergency (ER) | payer OTHER ==
[2020-11-29 13:53] VITALS: BP 146/96
--- NOTE | 2020-11-29 14:00 | Emergency Department Report ---
ED ENT HPI - General Chief complaint: Upper Respiratory Infection Stated complaint: EAR/HEAD PAIN Time Seen by Provider: 11/29/20 13:49 Source: patient Mode of arrival: Ambulatory Limitations: No Limitations - History of Present Illness Initial comments: This is a 50-year-old female nontoxic, well nourished in appearance, no acute signs of distress presents to the ED with c/o of sore throat, frontal sinus headache, bilateral ear pain times several days. Patient describes sore throat as swallowing razer blades. Patient denies any drainage from the ear. Denies worse headache. Denies any radiation of pain. Denies thunderclap headache. Denies any head trauma or injuries. Patient denies any fever, chills, stiff neck, nausea, vomiting, chest pain, shortness of breath, numbness or tingling. Patient denies any drooling or hoarseness. Patient denies any allergies. MD complaint: sore throat, ear pain, other (frontal sinus headache) -: days(s) Location: R ear, L ear, throat Severity: mild Severity scale (0 -10): 8 Quality: aching Consistency: constant Improves with: none Worsens with: swallowing Associated Symptoms: pain with swallowing, sore throat. denies: fever, cough, gum swelling, toothache, tinnitus, hearing loss, discharge from ear, rhinorrhea - Related Data Home Medications Medication Instructions Recorded Confirmed Last Taken Omeprazole [PriLOSEC] 40 mg PO QDAY 05/03/15 07/30/17 07/28/17 Mesalamine [Pentasa] 1,000 mg PO 4XD 07/29/17 07/29/17 07/28/17 Previous Rx's Medication Instructions Recorded Last Taken Type Pantoprazole [Protonix TAB] 40 mg PO DAILY #30 tablet 08/02/17 Unknown Rx Triamter/Hctz 37.5-25 mg 1 each PO DAILY #30 tablet 08/02/17 Unknown Rx [Maxzide-25] HYDROcodone/APAP 7.5-325 [[place] 1 each PO Q8HR PRN #10 tablet 09/30/17 Unknown Rx 7.5-325 mg TAB] Ibuprofen [Motrin] 800 mg PO Q8HR PRN #15 tablet 09/30/17 Unknown Rx Ondansetron [Zofran TAB] 4 mg PO Q8HR PRN #15 tablet 09/30/17 Unknown Rx levoFLOXacin [Levaquin TAB] 500 mg PO ONCE #10 tablet 09/30/17 Unknown Rx Amoxicillin [Trimox CAP] 500 mg PO Q8H #21 capsule 11/30/17 Unknown Rx Carbamide Peroxide 6.5% [Ear Wax 5 drops OT BID #1 bottle 11/30/17 Unknown Rx Drops] Famotidine [Pepcid] 20 mg PO BID PRN #30 tablet 11/30/17 Unknown Rx Ibuprofen [Motrin] 800 mg PO Q8HR PRN #15 tablet 11/30/17 Unknown Rx Ondansetron [Zofran Odt] 4 mg PO Q8H PRN #12 tab.rapdis 11/30/17 Unknown Rx Albuterol Mdi (or & Nicu Only) 2 puff IH QID PRN #1 inhalation 04/20/19 Unknown Rx [ProAir HFA Inhaler] guaiFENesin/CODEINE [Robitussin AC] 5 ml PO Q6H PRN #100 ml 04/20/19 Unknown Rx Prednisone [predniSONE 5 mg (6-Day 5 mg PO .TAPER #1 tab.ds.pk 08/31/19 Unknown Rx Pack, 21 Tabs)] metroNIDAZOLE [Flagyl TAB] 500 mg PO Q8HR 3 Days #9 tablet 08/31/19 Unknown Rx Azithromycin [Zithromax Z-DILAN] 250 mg PO DAILY #6 tablet 10/17/19 Unknown Rx Benzonatate [Tessalon Perles] 100 mg PO Q8HR PRN #20 capsule 10/17/19 Unknown Rx Cetirizine HCl 10 mg PO QDAY #30 tablet 02/29/20 Unknown Rx Oxymetazoline HCl [Nasal 1 spray NS QHS #1 bottle 02/29/20 Unknown Rx Decongestant] Sulfamethoxazole/Trimethoprim 1 each PO BID 10 Days #20 tablet 02/29/20 Unknown Rx [Bactrim DS TAB] Amoxicillin/Potassium Clav 1 each PO BID #20 tablet 05/11/20 Unknown Rx [Augmentin 875-125 Tablet] traMADoL [Ultram 50 MG tab] 50 mg PO Q4HR PRN #14 tablet 05/11/20 Unknown Rx Amoxicillin/K Clav Tab [Augmentin 1 tab PO Q12HR #20 tab 11/29/20 Unknown Rx 875 mg] Allergies Allergy/AdvReac Type Severity Reaction Status Date / Time No Known Allergies Allergy Verified 11/29/20 13:50 ED Dental HPI - General Chief complaint: Upper Respiratory Infection Stated complaint: EAR/HEAD PAIN Time Seen by Provider: 11/29/20 13:49 Source: patient Mode of arrival: Ambulatory Limitations: No Limitations - Related Data Home Medications Medication Instructions Recorded Confirmed Last Taken Omeprazole [PriLOSEC] 40 mg PO QDAY 05/03/15 07/30/17 07/28/17 Mesalamine [Pentasa] 1,000 mg PO 4XD 07/29/17 07/29/17 07/28/17 Previous Rx's Medication Instructions Recorded Last Taken Type Pantoprazole [Protonix TAB] 40 mg PO DAILY #30 tablet 08/02/17 Unknown Rx Triamter/Hctz 37.5-25 mg 1 each PO DAILY #30 tablet 08/02/17 Unknown Rx [Maxzide-25] HYDROcodone/APAP 7.5-325 [[place] 1 each PO Q8HR PRN #10 tablet 09/30/17 Unknown Rx 7.5-325 mg TAB] Ibuprofen [Motrin] 800 mg PO Q8HR PRN #15 tablet 09/30/17 Unknown Rx Ondansetron [Zofran TAB] 4 mg PO Q8HR PRN #15 tablet 09/30/17 Unknown Rx levoFLOXacin [Levaquin TAB] 500 mg PO ONCE #10 tablet 09/30/17 Unknown Rx Amoxicillin [Trimox CAP] 500 mg PO Q8H #21 capsule 11/30/17 Unknown Rx Carbamide Peroxide 6.5% [Ear Wax 5 drops OT BID #1 bottle 11/30/17 Unknown Rx Drops] Famotidine [Pepcid] 20 mg PO BID PRN #30 tablet 11/30/17 Unknown Rx Ibuprofen [Motrin] 800 mg PO Q8HR PRN #15 tablet 11/30/17 Unknown Rx Ondansetron [Zofran Odt] 4 mg PO Q8H PRN #12 tab.rapdis 11/30/17 Unknown Rx Albuterol Mdi (or & Nicu Only) 2 puff IH QID PRN #1 inhalation 04/20/19 Unknown Rx [ProAir HFA Inhaler] guaiFENesin/CODEINE [Robitussin AC] 5 ml PO Q6H PRN #100 ml 04/20/19 Unknown Rx Prednisone [predniSONE 5 mg (6-Day 5 mg PO .TAPER #1 tab.ds.pk 08/31/19 Unknown Rx Pack, 21 Tabs)] metroNIDAZOLE [Flagyl TAB] 500 mg PO Q8HR 3 Days #9 tablet 08/31/19 Unknown Rx Azithromycin [Zithromax Z-DILAN] 250 mg PO DAILY #6 tablet 10/17/19 Unknown Rx Benzonatate [Tessalon Perles] 100 mg PO Q8HR PRN #20 capsule 10/17/19 Unknown Rx Cetirizine HCl 10 mg PO QDAY #30 tablet 02/29/20 Unknown Rx Oxymetazoline HCl [Nasal 1 spray NS QHS #1 bottle 02/29/20 Unknown Rx Decongestant] Sulfamethoxazole/Trimethoprim 1 each PO BID 10 Days #20 tablet 02/29/20 Unknown Rx [Bactrim DS TAB] Amoxicillin/Potassium Clav 1 each PO BID #20 tablet 05/11/20 Unknown Rx [Augmentin 875-125 Tablet] traMADoL [Ultram 50 MG tab] 50 mg PO Q4HR PRN #14 tablet 05/11/20 Unknown Rx Amoxicillin/K Clav Tab [Augmentin 1 tab PO Q12HR #20 tab 11/29/20 Unknown Rx 875 mg] Allergies Allergy/AdvReac Type Severity Reaction Status Date / Time No Known Allergies Allergy Verified 11/29/20 13:50 ED Review of Systems ROS: Stated complaint: EAR/HEAD PAIN Other details as noted in HPI Constitutional: denies: chills, fever Eyes: denies: eye pain, eye discharge, vision change ENT: ear pain, throat pain. denies: dental pain, hearing loss, epistaxis, congestion Respiratory: denies: cough, shortness of breath, wheezing Cardiovascular: denies: chest pain, palpitations Endocrine: no symptoms reported Gastrointestinal: denies: abdominal pain, nausea, diarrhea Genitourinary: denies: urgency, dysuria, discharge Musculoskeletal: denies: back pain, joint swelling, arthralgia Skin: denies: rash, lesions Neurological: headache. denies: weakness, paresthesias Psychiatric: denies: anxiety, depression Hematological/Lymphatic: denies: easy bleeding, easy bruising ED Past Medical Hx - Past Medical History Hx Hypertension: Yes Hx Congestive Heart Failure: No Hx Diabetes: No Hx GERD: Yes Hx Sickle Cell Disease: No Hx Asthma: No Hx COPD: No Hx HIV: No Additional medical history: chrons. Sinus disease. UTI. Hemorrhoids - Surgical History Additional Surgical History: tubal ligation - Social History Smoking Status: Current Some Day Smoker Substance Use Type: Alcohol - Medications Home Medications: Home Medications Medication Instructions Recorded Confirmed Last Taken Type Omeprazole [PriLOSEC] 40 mg PO QDAY 05/03/15 07/30/17 07/28/17 History Mesalamine [Pentasa] 1,000 mg PO 4XD 07/29/17 07/29/17 07/28/17 History Pantoprazole [Protonix TAB] 40 mg PO DAILY #30 tablet 08/02/17 Unknown Rx Triamter/Hctz 37.5-25 mg 1 each PO DAILY #30 tablet 08/02/17 Unknown Rx [Maxzide-25] HYDROcodone/APAP 7.5-325 [[place] 1 each PO Q8HR PRN #10 tablet 09/30/17 Unknown Rx 7.5-325 mg TAB] Ibuprofen [Motrin] 800 mg PO Q8HR PRN #15 tablet 09/30/17 Unknown Rx Ondansetron [Zofran TAB] 4 mg PO Q8HR PRN #15 tablet 09/30/17 Unknown Rx levoFLOXacin [Levaquin TAB] 500 mg PO ONCE #10 tablet 09/30/17 Unknown Rx Amoxicillin [Trimox CAP] 500 mg PO Q8H #21 capsule 11/30/17 Unknown Rx Carbamide Peroxide 6.5% [Ear Wax 5 drops OT BID #1 bottle 11/30/17 Unknown Rx Drops] Famotidine [Pepcid] 20 mg PO BID PRN #30 tablet 11/30/17 Unknown Rx Ibuprofen [Motrin] 800 mg PO Q8HR PRN #15 tablet 11/30/17 Unknown Rx Ondansetron [Zofran Odt] 4 mg PO Q8H PRN #12 tab.rapdis 11/30/17 Unknown Rx Albuterol Mdi (or & Nicu Only) 2 puff IH QID PRN #1 inhalation 04/20/19 Unknown Rx [ProAir HFA Inhaler] guaiFENesin/CODEINE [Robitussin AC] 5 ml PO Q6H PRN #100 ml 04/20/19 Unknown Rx Prednisone [predniSONE 5 mg (6-Day 5 mg PO .TAPER #1 tab.ds.pk 08/31/19 Unknown Rx Pack, 21 Tabs)] metroNIDAZOLE [Flagyl TAB] 500 mg PO Q8HR 3 Days #9 tablet 08/31/19 Unknown Rx Azithromycin [Zithromax Z-DILAN] 250 mg PO DAILY #6 tablet 10/17/19 Unknown Rx Benzonatate [Tessalon Perles] 100 mg PO Q8HR PRN #20 capsule 10/17/19 Unknown Rx Cetirizine HCl 10 mg PO QDAY #30 tablet 02/29/20 Unknown Rx Oxymetazoline HCl [Nasal 1 spray NS QHS #1 bottle 02/29/20 Unknown Rx Decongestant] Sulfamethoxazole/Trimethoprim 1 each PO BID 10 Days #20 tablet 02/29/20 Unknown Rx [Bactrim DS TAB] Amoxicillin/Potassium Clav 1 each PO BID #20 tablet 05/11/20 Unknown Rx [Augmentin 875-125 Tablet] traMADoL [Ultram 50 MG tab] 50 mg PO Q4HR PRN #14 tablet 05/11/20 Unknown Rx Amoxicillin/K Clav Tab [Augmentin 1 tab PO Q12HR #20 tab 11/29/20 Unknown Rx 875 mg] ED Physical Exam - General Limitations: No Limitations General appearance: alert, in no apparent distress - Head Head exam: Present: atraumatic, normocephalic - Eye Eye exam: Present: normal appearance, PERRL, EOMI - Expanded ENT Exam Expanded Ear exam: Present: normal external inspection Mouth exam: Present: normal external inspection, tongue normal. Absent: drooling, trismus, muffled voice Teeth exam: Present: normal inspection Throat exam: Positive: tonsillar erythema, tonsillomegaly (2+), other (Uvula midline). Negative: tonsillar exudate, R peritonsillar mass, L peritonsillar mass - Neck Neck exam: Present: normal inspection, full ROM. Absent: tenderness, meningismus, lymphadenopathy - Respiratory Respiratory exam: Present: normal lung sounds bilaterally. Absent: respiratory distress, wheezes, rales, rhonchi, stridor, chest wall tenderness, accessory muscle use, decreased breath sounds, prolonged expiratory - Cardiovascular Cardiovascular Exam: Present: regular rate - Extremities Exam Extremities exam: Present: full ROM - Back Exam Back exam: Present: full ROM - Neurological Exam Neurological exam: Present: alert, oriented X3, normal gait - Expanded Neurological Exam Expanded Patient oriented to: Present: person, place, time Cranial nerves: EOM's Intact: Normal, Facial Sensation: Normal Cerebellar function: Finger to Nose: Normal Upper motor neuron: Pronator Drift: Normal, Sensory Extinction: Normal Motor strength exam: RUE: 5, LUE: 5, RLE: 5, LLE: 5 Best Eye Response ([place]): (4) open spontaneously Best Motor Response ([place]): (6) obeys commands Best Verbal Response ([place]udy): (5) oriented Rudy Total: 15 - Psychiatric Psychiatric exam: Present: normal affect, normal mood - Skin Skin exam: Present: warm, dry, intact, normal color. Absent: rash - Other Other exam information: Positive frontal sinus tenderness ED Course Vital Signs 11/29/20 13:51 Temperature 99.1 F Pulse Rate 105 H Respiratory 18 Rate Blood Pressure 146/96 O2 Sat by Pulse 99 Oximetry - Reevaluation(s) Reevaluation #1: 11/29/20 13:59 Patient is speaking in full sentences with no signs of distress noted. ED Medical Decision Making - Medical Decision Making Patient stable and was examined by me. Vital signs are stable. Patient be discharged with Augmentin for sinusitis and pharyngitis. Patient was instructed to follow-up with a primary care doctor in 3-5 days or if symptoms worsen and continue return to emergency room as soon as possible. At time of discharge, the patient does not seem toxic or ill in appearance. No acute signs of distress noted. Patient agrees to discharge treatment plan of care. No further questions noted by the patient. Critical care attestation.: If time is entered above; I have spent that time in minutes in the direct care of this critically ill patient, excluding procedure time. ED Disposition Clinical Impression: Sinusitis Qualifiers: Sinusitis location: frontal Chronicity: acute Recurrence: non-recurrent Qualified Code(s): J01.10 - Acute frontal sinusitis, unspecified Pharyngitis Qualifiers: Pharyngitis/tonsillitis etiology: unspecified etiology Qualified Code(s): J02.9 - Acute pharyngitis, unspecified Disposition: - TO HOME OR SELFCARE Is pt being admited?: No Does the pt Need Aspirin: No Condition: Stable Instructions: Sinusitis, Adult, [id number], Pharyngitis Additional Instructions: Follow-up with a primary care doctor in 3-5 days or if symptoms worsen and continue return to emergency room as soon as possible. Prescriptions: Amoxicillin/K Clav Tab [Augmentin 875 mg] 1 tab PO Q12HR #20 tab Referrals: PRIMARY CAREMD [Referring] - 3-5 Days NENA PANDA MD [Staff Physician] - 3-5 Days Forms: Work/School Release Form(ED) Time of Disposition: 14:00
== END 2020-11-29 14:39 | disposition home or self-care (01) ==
LOC: ED 13:45
DX: J32.9 Chronic sinusitis, unspecified (principal); J02.9 Acute pharyngitis, unspecified; I10 Essential (primary) hypertension; K21.9 Gastro-esophageal reflux disease without esophagitis; F17.200 Nicotine dependence, unspecified, uncomplicated; Z98.51 Tubal ligation status; Z79.1 Long term (current) use of non-steroidal anti-inflammatories (NSAID); Z79.2 Long term (current) use of antibiotics; Z79.899 Other long term (current) drug therapy
CPT/HCPCS: 99282

== ENCOUNTER 2021-04-22 15:30 | Emergency (ER) | payer OTHER ==
[2021-04-22 18:12] VITALS: BP 139/90
--- NOTE | 2021-04-22 20:27 | Emergency Department Report ---
ED ENT HPI - General Chief complaint: Earache Stated complaint: EAR THROAT PAINS Time Seen by Provider: 04/22/21 19:37 Source: patient Mode of arrival: Ambulatory Limitations: No Limitations - History of Present Illness Initial comments: 50-year-old female with a past medical history of hypertension, Crohn's disease, chronic sinus disease, and reflux disease presents to the ER today with complaints of ear pain, and frontal headache. She states that she been having the symptoms for about 1 week. She reports nasal congestion but no rhinorrhea. She reports mild cough mainly when laying down. She states that she has been taking her Claritin daily but has not been really compliant with her Flonase. 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 She reports no nausea, vomiting, sore throat, chest pain, shortness of breath, wheezing, fever or chills. Patient also states that she is concerned about the color of her urine, she noticed in the past 2 days it has been a dark brown color. She reports urinary frequency but denies any dysuria or any hematuria. She reports no changes to her stool color or any significant abdominal pain or back pain. MD complaint: sore throat, ear pain, other (Headache ) -: week(s) (1) - Related Data Home Medications Medication Instructions Recorded Confirmed Last Taken Omeprazole [PriLOSEC] 40 mg PO QDAY 05/03/15 07/30/17 07/28/17 Mesalamine [Pentasa] 1,000 mg PO 4XD 07/29/17 07/29/17 07/28/17 Previous Rx's Medication Instructions Recorded Last Taken Type Pantoprazole [Protonix TAB] 40 mg PO DAILY #30 tablet 08/02/17 Unknown Rx Triamter/Hctz 37.5-25 mg 1 each PO DAILY #30 tablet 08/02/17 Unknown Rx [Maxzide-25] HYDROcodone/APAP 7.5-325 [Volga 1 each PO Q8HR PRN #10 tablet 09/30/17 Unknown Rx 7.5-325 mg TAB] Ibuprofen [Motrin] 800 mg PO Q8HR PRN #15 tablet 09/30/17 Unknown Rx Ondansetron [Zofran TAB] 4 mg PO Q8HR PRN #15 tablet 09/30/17 Unknown Rx levoFLOXacin [Levaquin TAB] 500 mg PO ONCE #10 tablet 09/30/17 Unknown Rx Amoxicillin [Trimox CAP] 500 mg PO Q8H #21 capsule 11/30/17 Unknown Rx Carbamide Peroxide 6.5% [Ear Wax 5 drops OT BID #1 bottle 11/30/17 Unknown Rx Drops] Famotidine [Pepcid] 20 mg PO BID PRN #30 tablet 11/30/17 Unknown Rx Ibuprofen [Motrin] 800 mg PO Q8HR PRN #15 tablet 11/30/17 Unknown Rx Ondansetron [Zofran Odt] 4 mg PO Q8H PRN #12 tab.rapdis 11/30/17 Unknown Rx Albuterol Mdi (or & Nicu Only) 2 puff IH QID PRN #1 inhalation 04/20/19 Unknown Rx [ProAir HFA Inhaler] guaiFENesin/CODEINE [Robitussin AC] 5 ml PO Q6H PRN #100 ml 04/20/19 Unknown Rx Prednisone [predniSONE 5 mg (6-Day 5 mg PO .TAPER #1 tab.ds.pk 08/31/19 Unknown Rx Pack, 21 Tabs)] metroNIDAZOLE [Flagyl TAB] 500 mg PO Q8HR 3 Days #9 tablet 08/31/19 Unknown Rx Azithromycin [Zithromax Z-DILAN] 250 mg PO DAILY #6 tablet 10/17/19 Unknown Rx Benzonatate [Tessalon Perles] 100 mg PO Q8HR PRN #20 capsule 10/17/19 Unknown Rx Cetirizine HCl 10 mg PO QDAY #30 tablet 02/29/20 Unknown Rx Oxymetazoline HCl [Nasal 1 spray NS QHS #1 bottle 02/29/20 Unknown Rx Decongestant] Sulfamethoxazole/Trimethoprim 1 each PO BID 10 Days #20 tablet 02/29/20 Unknown Rx [Bactrim DS TAB] traMADoL [Ultram 50 MG tab] 50 mg PO Q4HR PRN #14 tablet 05/11/20 Unknown Rx Amoxicillin/K Clav Tab [Augmentin 1 tab PO Q12HR #20 tab 11/29/20 Unknown Rx 875 mg] Amoxicillin/Potassium Clav 1 each PO BID #14 tablet 04/22/21 Unknown Rx [Augmentin 875-125 Tablet] Butalb/Acetamin/Caff 50-325-40 1 tab PO Q6HR PRN #12 tab 04/22/21 Unknown Rx [Fioricet 50-325-40] Allergies Allergy/AdvReac Type Severity Reaction Status Date / Time No Known Allergies Allergy Verified 11/29/20 13:50 ED Dental HPI - General Chief complaint: Earache Stated complaint: EAR THROAT PAINS Time Seen by Provider: 04/22/21 19:37 Source: patient Mode of arrival: Ambulatory Limitations: No Limitations - Related Data Home Medications Medication Instructions Recorded Confirmed Last Taken Omeprazole [PriLOSEC] 40 mg PO QDAY 05/03/15 07/30/17 07/28/17 Mesalamine [Pentasa] 1,000 mg PO 4XD 07/29/17 07/29/17 07/28/17 Previous Rx's Medication Instructions Recorded Last Taken Type Pantoprazole [Protonix TAB] 40 mg PO DAILY #30 tablet 08/02/17 Unknown Rx Triamter/Hctz 37.5-25 mg 1 each PO DAILY #30 tablet 08/02/17 Unknown Rx [Maxzide-25] HYDROcodone/APAP 7.5-325 [Volga 1 each PO Q8HR PRN #10 tablet 09/30/17 Unknown Rx 7.5-325 mg TAB] Ibuprofen [Motrin] 800 mg PO Q8HR PRN #15 tablet 09/30/17 Unknown Rx Ondansetron [Zofran TAB] 4 mg PO Q8HR PRN #15 tablet 09/30/17 Unknown Rx levoFLOXacin [Levaquin TAB] 500 mg PO ONCE #10 tablet 09/30/17 Unknown Rx Amoxicillin [Trimox CAP] 500 mg PO Q8H #21 capsule 11/30/17 Unknown Rx Carbamide Peroxide 6.5% [Ear Wax 5 drops OT BID #1 bottle 11/30/17 Unknown Rx Drops] Famotidine [Pepcid] 20 mg PO BID PRN #30 tablet 11/30/17 Unknown Rx Ibuprofen [Motrin] 800 mg PO Q8HR PRN #15 tablet 11/30/17 Unknown Rx Ondansetron [Zofran Odt] 4 mg PO Q8H PRN #12 tab.rapdis 11/30/17 Unknown Rx Albuterol Mdi (or & Nicu Only) 2 puff IH QID PRN #1 inhalation 07/31/19 Unknown Rx [ProAir HFA Inhaler] guaiFENesin/CODEINE [Robitussin AC] 5 ml PO Q6H PRN #100 ml 04/20/19 Unknown Rx Prednisone [predniSONE 5 mg (6-Day 5 mg PO .TAPER #1 tab.ds.pk 08/31/19 Unknown Rx Pack, 21 Tabs)] metroNIDAZOLE [Flagyl TAB] 500 mg PO Q8HR 3 Days #9 tablet 08/31/19 Unknown Rx Azithromycin [Zithromax Z-DILAN] 250 mg PO DAILY #6 tablet 10/17/19 Unknown Rx Benzonatate [Tessalon Perles] 100 mg PO Q8HR PRN #20 capsule 10/17/19 Unknown Rx Cetirizine HCl 10 mg PO QDAY #30 tablet 02/29/20 Unknown Rx Oxymetazoline HCl [Nasal 1 spray NS QHS #1 bottle 02/29/20 Unknown Rx Decongestant] Sulfamethoxazole/Trimethoprim 1 each PO BID 10 Days #20 tablet 02/29/20 Unknown Rx [Bactrim DS TAB] traMADoL [Ultram 50 MG tab] 50 mg PO Q4HR PRN #14 tablet 05/11/20 Unknown Rx Amoxicillin/K Clav Tab [Augmentin 1 tab PO Q12HR #20 tab 11/29/20 Unknown Rx 875 mg] Amoxicillin/Potassium Clav 1 each PO BID #14 tablet 04/22/21 Unknown Rx [Augmentin 875-125 Tablet] Butalb/Acetamin/Caff 50-325-40 1 tab PO Q6HR PRN #12 tab 04/22/21 Unknown Rx [Fioricet 50-325-40] Allergies Allergy/AdvReac Type Severity Reaction Status Date / Time No Known Allergies Allergy Verified 11/29/20 13:50 ED Review of Systems ROS: Stated complaint: EAR THROAT PAINS Other details as noted in HPI Comment: All other systems reviewed and negative Constitutional: denies: chills, fever Eyes: denies: eye pain, eye discharge, vision change ENT: ear pain, congestion. denies: throat pain Respiratory: denies: cough, shortness of breath, SOB with exertion, SOB at rest, wheezing Cardiovascular: denies: chest pain, palpitations, dyspnea on exertion, edema, syncope, paroxysmal nocturnal dyspnea Endocrine: no symptoms reported. denies: excessive sweating, flushing, intolerance to cold, increased hunger, increased thirst, increased urine, unexplained weight gain, unexplained weight loss Gastrointestinal: denies: abdominal pain, nausea, vomiting, diarrhea, co nstipation, hematemesis, melena, hematochezia Genitourinary: denies: urgency, dysuria, discharge Neurological: headache ED Past Medical Hx - Past Medical History Previous Medical History?: Yes Hx Hypertension: Yes Hx Congestive Heart Failure: No Hx Diabetes: No Hx GERD: Yes Hx Sickle Cell Disease: No Hx Asthma: No Hx COPD: No Hx HIV: No Additional medical history: chrons. Sinus disease. UTI. Hemorrhoids - Surgical History Past Surgical History?: Yes Additional Surgical History: tubal ligation - Social History Smoking Status: Current Some Day Smoker Substance Use Type: Alcohol - Medications Home Medications: Home Medications Medication Instructions Recorded Confirmed Last Taken Type Omeprazole [PriLOSEC] 40 mg PO QDAY 05/03/15 07/30/17 07/28/17 History Mesalamine [Pentasa] 1,000 mg PO 4XD 07/29/17 07/29/17 07/28/17 History Pantoprazole [Protonix TAB] 40 mg PO DAILY #30 tablet 08/02/17 Unknown Rx Triamter/Hctz 37.5-25 mg 1 each PO DAILY #30 tablet 08/02/17 Unknown Rx [Maxzide-25] HYDROcodone/APAP 7.5-325 [Volga 1 each PO Q8HR PRN #10 tablet 09/30/17 Unknown Rx 7.5-325 mg TAB] Ibuprofen [Motrin] 800 mg PO Q8HR PRN #15 tablet 09/30/17 Unknown Rx Ondansetron [Zofran TAB] 4 mg PO Q8HR PRN #15 tablet 09/30/17 Unknown Rx levoFLOXacin [Levaquin TAB] 500 mg PO ONCE #10 tablet 09/30/17 Unknown Rx Amoxicillin [Trimox CAP] 500 mg PO Q8H #21 capsule 11/30/17 Unknown Rx Carbamide Peroxide 6.5% [Ear Wax 5 drops OT BID #1 bottle 11/30/17 Unknown Rx Drops] Famotidine [Pepcid] 20 mg PO BID PRN #30 tablet 11/30/17 Unknown Rx Ibuprofen [Motrin] 800 mg PO Q8HR PRN #15 tablet 11/30/17 Unknown Rx Ondansetron [Zofran Odt] 4 mg PO Q8H PRN #12 tab.rapdis 11/30/17 Unknown Rx Albuterol Mdi (or & Nicu Only) 2 puff IH QID PRN #1 inhalation 04/20/19 Unknown Rx [ProAir HFA Inhaler] guaiFENesin/CODEINE [Robitussin AC] 5 ml PO Q6H PRN #100 ml 04/20/19 Unknown Rx Prednisone [predniSONE 5 mg (6-Day 5 mg PO .TAPER #1 tab.ds.pk 08/31/19 Unknown Rx Pack, 21 Tabs)] metroNIDAZOLE [Flagyl TAB] 500 mg PO Q8HR 3 Days #9 tablet 08/31/19 Unknown Rx Azithromycin [Zithromax Z-DILAN] 250 mg PO DAILY #6 tablet 10/17/19 Unknown Rx Benzonatate [Tessalon Perles] 100 mg PO Q8HR PRN #20 capsule 10/17/19 Unknown Rx Cetirizine HCl 10 mg PO QDAY #30 tablet 02/29/20 Unknown Rx Oxymetazoline HCl [Nasal 1 spray NS QHS #1 bottle 02/29/20 Unknown Rx Decongestant] Sulfamethoxazole/Trimethoprim 1 each PO BID 10 Days #20 tablet 02/29/20 Unknown Rx [Bactrim DS TAB] traMADoL [Ultram 50 MG tab] 50 mg PO Q4HR PRN #14 tablet 05/11/20 Unknown Rx Amoxicillin/K Clav Tab [Augmentin 1 tab PO Q12HR #20 tab 11/29/20 Unknown Rx 875 mg] Amoxicillin/Potassium Clav 1 each PO BID #14 tablet 04/22/21 Unknown Rx [Augmentin 875-125 Tablet] Butalb/Acetamin/Caff 50-325-40 1 tab PO Q6HR PRN #12 tab 04/22/21 Unknown Rx [Fioricet 50-325-40] ED Physical Exam - General Limitations: No Limitations General appearance: alert, in no apparent distress - Head Head exam: Present: atraumatic, normocephalic, normal inspection - Eye Eye exam: Present: normal appearance, PERRL, EOMI Pupils: Present: normal accommodation - ENT ENT exam: Present: normal exam, mucous membranes moist, other (Nasal mucosa is swollen with yellow mucus noted; she has maxillary and frontal sinus tenderness) - Expanded ENT Exam Expanded TM/Canal exam: Effusion: Right TM, Left TM Mouth exam: Present: normal external inspection Throat exam: Positive: normal inspection - Neck Neck exam: Present: normal inspection, full ROM. Absent: meningismus - Respiratory Respiratory exam: Present: normal lung sounds bilaterally. Absent: respiratory distress, wheezes, rales, rhonchi - Cardiovascular Cardiovascular Exam: Present: regular rate, normal rhythm, normal heart sounds - GI/Abdominal GI/Abdominal exam: Present: soft. Absent: distended, tenderness, guarding, rebound, rigid - Neurological Exam Neurological exam: Present: alert, oriented X3, CN II-XII intact, normal gait - Psychiatric Psychiatric exam: Present: normal affect, normal mood - Skin Skin exam: Present: intact ED Course Vital Signs 04/22/21 18:11 Temperature 98.5 F Pulse Rate 94 H Respiratory 20 Rate Blood Pressure 139/90 O2 Sat by Pulse 99 Oximetry ED Medical Decision Making - Medical Decision Making UA unremarkable. Patient currently is well-appearing, nontoxic and currently not in any significant distress. She is neurologically intact with a normal gait in the ER. He appears well-hydrated. Vital signs are stable. I suspect that patient ear pain, frontal headache and sore throat is related to her sinus disease. I recommend that she use her Flonase consistently, as well as her Claritin and she will be given a prescription for antibiotics and something for her headache. Patient states that she will make an appointment to follow-up with ENT. Patient was stable at time of discharge. Critical care attestation.: If time is entered above; I have spent that time in minutes in the direct care of this critically ill patient, excluding procedure time. ED Disposition Clinical Impression: Eustachian tube dysfunction, Sinusitis Disposition: DC-01 TO HOME OR SELFCARE Is pt being admited?: No Does the pt Need Aspirin: No Condition: Stable Instructions: Eustachian Tube Dysfunction, Sinusitis, Adult, Sinus Headache Additional Instructions: It is important that you continue taking your Claritin daily and also using your Flonase daily. Take the Fioricet as prescribed for pain and also take the Augmentin as prescribed. I do recommend that you follow-up with your ENT and/or your primary care doctor. Return to the ER if your symptoms changes or worsens in any way. Prescriptions: Amoxicillin/Potassium Clav [Augmentin 875-125 Tablet] 1 each PO BID #14 tablet Butalb/Acetamin/Caff 50-325-40 [Fioricet 50-325-40] 1 tab PO Q6HR PRN #12 tab PRN Reason: Headache Referrals: PRIMARY CARE, [Referring] - 3-5 Days Time of Disposition: 21:49
[2021-04-22 21:26] LABS: HCG Qualitative,Urine Negative (Negative)
[2021-04-22 21:29] LABS: Bilirubin,Urine NEG (Negative); Blood,Urine MOD (Negative); Color,Urine Yellow (Yellow); Mucus,Urine FEW /HPF; Protein,Urine <15 mg/dL mg/dL (Negative); Urobilinogen,Urine < 2.0 mg/dL (<2.0)
== END 2021-04-22 21:30 | disposition home or self-care (01) ==
LOC: ED 15:30
DX: H69.90 Unspecified Eustachian tube disorder, unspecified ear (principal); J32.9 Chronic sinusitis, unspecified; I10 Essential (primary) hypertension; K21.9 Gastro-esophageal reflux disease without esophagitis; F17.200 Nicotine dependence, unspecified, uncomplicated
CPT/HCPCS: 81001; 81025; 99283

== ENCOUNTER 2021-07-03 20:51 | Emergency (ER) | payer OTHER ==
--- NOTE | 2021-07-04 02:56 | Emergency Department Report ---
- General Chief Complaint: Skin/Abscess/Foreign Body Stated Complaint: ABDOMINAL PAIN, BOIL ON RT ARM Time Seen by Provider: 07/04/21 02:40 Source: patient Mode of arrival: Ambulatory Limitations: No Limitations - History of Present Illness Initial Comments: Patient is a 51-year-old female who presents emergency room with complaints of a draining abscess in her right armpit. Patient states her symptoms are worsening. Patient states her pain is a 6 out of 10. Patient states the pain is better with rest and worse with palpation and movement. Patient states is in her right armpit. States had it for 7 days. Patient states yesterday the boil opened and started draining a purulent discharge. Patient states the boil flattened after opening. Patient denies fever and chills. Patient states she had multiple armpit boils in her life. Patient states her tetanus is up-to-date. Patient denies recent travel. Patient denies recent international travel. Patient denies exposure to the novel coronavirus. Patient denies sick contacts. Patient denies fever and chills. Patient denies cough. Patient denies diarrhea. Patient denies coming in contact with anybody with symptoms of the novel coronavirus. -: Sudden, week(s) Location: other Place: home Patient Tetanus UTD: Yes Associated Symptoms: pain - Related Data Home Medications Medication Instructions Recorded Confirmed Last Taken Omeprazole [PriLOSEC] 40 mg PO QDAY 05/03/15 07/30/17 07/28/17 Mesalamine [Pentasa] 1,000 mg PO 4XD 07/29/17 07/29/17 07/28/17 Previous Rx's Medication Instructions Recorded Last Taken Type Pantoprazole [Protonix TAB] 40 mg PO DAILY #30 tablet 08/02/17 Unknown Rx Triamter/Hctz 37.5-25 mg 1 each PO DAILY #30 tablet 08/02/17 Unknown Rx [Maxzide-25] HYDROcodone/APAP 7.5-325 [Gladstone 1 each PO Q8HR PRN #10 tablet 09/30/17 Unknown Rx 7.5-325 mg TAB] Ibuprofen [Motrin] 800 mg PO Q8HR PRN #15 tablet 09/30/17 Unknown Rx Ondansetron [Zofran TAB] 4 mg PO Q8HR PRN #15 tablet 01/10/18 Unknown Rx levoFLOXacin [Levaquin TAB] 500 mg PO ONCE #10 tablet 09/30/17 Unknown Rx Amoxicillin [Trimox CAP] 500 mg PO Q8H #21 capsule 11/30/17 Unknown Rx Carbamide Peroxide 6.5% [Ear Wax 5 drops OT BID #1 bottle 11/30/17 Unknown Rx Drops] Famotidine [Pepcid] 20 mg PO BID PRN #30 tablet 11/30/17 Unknown Rx Ibuprofen [Motrin] 800 mg PO Q8HR PRN #15 tablet 11/30/17 Unknown Rx Ondansetron [Zofran Odt] 4 mg PO Q8H PRN #12 tab.rapdis 11/30/17 Unknown Rx Albuterol Mdi (or & Nicu Only) 2 puff IH QID PRN #1 inhalation 04/20/19 Unknown Rx [ProAir HFA Inhaler] guaiFENesin/CODEINE [Robitussin AC] 5 ml PO Q6H PRN #100 ml 04/20/19 Unknown Rx Prednisone [predniSONE 5 mg (6-Day 5 mg PO .TAPER #1 tab.ds.pk 08/31/19 Unknown Rx Pack, 21 Tabs)] metroNIDAZOLE [Flagyl TAB] 500 mg PO Q8HR 3 Days #9 tablet 08/31/19 Unknown Rx Azithromycin [Zithromax Z-DILAN] 250 mg PO DAILY #6 tablet 10/17/19 Unknown Rx Benzonatate [Tessalon Perles] 100 mg PO Q8HR PRN #20 capsule 10/17/19 Unknown Rx Cetirizine HCl 10 mg PO QDAY #30 tablet 02/29/20 Unknown Rx Oxymetazoline HCl [Nasal 1 spray NS QHS #1 bottle 02/29/20 Unknown Rx Decongestant] traMADoL [Ultram 50 MG tab] 50 mg PO Q4HR PRN #14 tablet 05/11/20 Unknown Rx Amoxicillin/Potassium Clav 1 each PO BID #14 tablet 04/22/21 Unknown Rx [Augmentin 875-125 Tablet] Butalb/Acetamin/Caff 50-325-40 1 tab PO Q6HR PRN #12 tab 04/22/21 Unknown Rx [Fioricet 50-325-40] Amoxicillin/K Clav Tab [Augmentin 1 tab PO Q12HR #20 tab 07/04/21 Unknown Rx 875MG TAB] Fluconazole [Diflucan TAB] 200 mg PO QDAY 1 Days #1 tablet 07/04/21 Unknown Rx Sulfamethoxazole/Trimethoprim 1 each PO BID 10 Days #20 tablet 07/04/21 Unknown Rx [Bactrim DS TAB] Allergies Allergy/AdvReac Type Severity Reaction Status Date / Time No Known Allergies Allergy Verified 11/29/20 13:50 ED Review of Systems ROS: Stated complaint: ABDOMINAL PAIN, BOIL ON RT ARM Other details as noted in HPI Constitutional: denies: chills, fever Eyes: denies: eye pain, eye discharge, vision change ENT: denies: ear pain, throat pain Respiratory: denies: cough, shortness of breath, wheezing Cardiovascular: denies: chest pain, palpitations Endocrine: no symptoms reported Gastrointestinal: denies: abdominal pain, nausea, diarrhea Genitourinary: denies: urgency, dysuria, discharge Musculoskeletal: denies: back pain, joint swelling, arthralgia Skin: as per HPI, lesions. denies: rash Neurological: denies: headache, weakness, paresthesias Psychiatric: denies: anxiety, depression Hematological/Lymphatic: denies: easy bleeding, easy bruising ED Past Medical Hx - Past Medical History Previous Medical History?: Yes Hx Hypertension: Yes Hx Congestive Heart Failure: No Hx Diabetes: No Hx GERD: Yes Hx Sickle Cell Disease: No Hx Asthma: No Hx COPD: No Hx HIV: No Additional medical history: chrons. Sinus disease. UTI. Hemorrhoids - Surgical History Past Surgical History?: Yes Additional Surgical History: tubal ligation - Family History Family history: no significant - Social History Smoking Status: Current Some Day Smoker Substance Use Type: Alcohol - Medications Home Medications: Home Medications Medication Instructions Recorded Confirmed Last Taken Type Omeprazole [PriLOSEC] 40 mg PO QDAY 05/03/15 07/30/17 07/28/17 History Mesalamine [Pentasa] 1,000 mg PO 4XD 07/29/17 07/29/17 07/28/17 History Pantoprazole [Protonix TAB] 40 mg PO DAILY #30 tablet 08/02/17 Unknown Rx Triamter/Hctz 37.5-25 mg 1 each PO DAILY #30 tablet 08/02/17 Unknown Rx [Maxzide-25] HYDROcodone/APAP 7.5-325 [[place] 1 each PO Q8HR PRN #10 tablet 09/30/17 Unknown Rx 7.5-325 mg TAB] Ibuprofen [Motrin] 800 mg PO Q8HR PRN #15 tablet 09/30/17 Unknown Rx Ondansetron [Zofran TAB] 4 mg PO Q8HR PRN #15 tablet 09/30/17 Unknown Rx levoFLOXacin [Levaquin TAB] 500 mg PO ONCE #10 tablet 09/30/17 Unknown Rx Amoxicillin [Trimox CAP] 500 mg PO Q8H #21 capsule 11/30/17 Unknown Rx Carbamide Peroxide 6.5% [Ear Wax 5 drops OT BID #1 bottle 11/30/17 Unknown Rx Drops] Famotidine [Pepcid] 20 mg PO BID PRN #30 tablet 11/30/17 Unknown Rx Ibuprofen [Motrin] 800 mg PO Q8HR PRN #15 tablet 11/30/17 Unknown Rx Ondansetron [Zofran Odt] 4 mg PO Q8H PRN #12 tab.rapdis 11/30/17 Unknown Rx Albuterol Mdi (or & Nicu Only) 2 puff IH QID PRN #1 inhalation 04/20/19 Unknown Rx [ProAir HFA Inhaler] guaiFENesin/CODEINE [Robitussin AC] 5 ml PO Q6H PRN #100 ml 04/20/19 Unknown Rx Prednisone [predniSONE 5 mg (6-Day 5 mg PO .TAPER #1 tab.ds.pk 08/31/19 Unknown Rx Pack, 21 Tabs)] metroNIDAZOLE [Flagyl TAB] 500 mg PO Q8HR 3 Days #9 tablet 08/31/19 Unknown Rx Azithromycin [Zithromax Z-DILAN] 250 mg PO DAILY #6 tablet 10/17/19 Unknown Rx Benzonatate [Tessalon Perles] 100 mg PO Q8HR PRN #20 capsule 10/17/19 Unknown Rx Cetirizine HCl 10 mg PO QDAY #30 tablet 02/29/20 Unknown Rx Oxymetazoline HCl [Nasal 1 spray NS QHS #1 bottle 02/29/20 Unknown Rx Decongestant] traMADoL [Ultram 50 MG tab] 50 mg PO Q4HR PRN #14 tablet 05/11/20 Unknown Rx Amoxicillin/Potassium Clav 1 each PO BID #14 tablet 04/22/21 Unknown Rx [Augmentin 875-125 Tablet] Butalb/Acetamin/Caff 50-325-40 1 tab PO Q6HR PRN #12 tab 04/22/21 Unknown Rx [Fioricet 50-325-40] Amoxicillin/K Clav Tab [Augmentin 1 tab PO Q12HR #20 tab 07/04/21 Unknown Rx 875MG TAB] Fluconazole [Diflucan TAB] 200 mg PO QDAY 1 Days #1 tablet 07/04/21 Unknown Rx Sulfamethoxazole/Trimethoprim 1 each PO BID 10 Days #20 tablet 07/04/21 Unknown Rx [Bactrim DS TAB] ED Physical Exam - General Limitations: No Limitations General appearance: alert, in no apparent distress - Head Head exam: Present: atraumatic, normocephalic - Eye Eye exam: Present: normal appearance - ENT ENT exam: Present: mucous membranes moist - Neck Neck exam: Present: normal inspection - Respiratory Respiratory exam: Present: normal lung sounds bilaterally. Absent: respiratory distress - Cardiovascular Cardiovascular Exam: Present: regular rate, normal rhythm. Absent: systolic murmur, diastolic murmur, rubs, gallop - GI/Abdominal GI/Abdominal exam: Present: soft, normal bowel sounds - Extremities Exam Extremities exam: Present: normal inspection - Back Exam Back exam: Present: normal inspection - Neurological Exam Neurological exam: Present: alert, oriented X3 - Psychiatric Psychiatric exam: Present: normal affect, normal mood - Skin Skin exam: Present: warm, dry, normal color, other (Open wound to the right axillary region. Area is tender to palpation. Patient has its early discharge. Consistent with a open abscess.). Absent: rash ED Course Vital Signs 07/03/21 07/03/21 07/03/21 22:13 23:03 23:15 Temperature 98.2 F Pulse Rate 104 H Respiratory 18 Rate Blood Pressure 139/88 Blood Pressure 150/97 [Right] O2 Sat by Pulse 100 99 98 Oximetry 07/03/21 07/03/21 07/04/21 23:31 23:45 03:37 Temperature Pulse Rate Respiratory 18 Rate Blood Pressure 139/92 139/92 Blood Pressure [Right] O2 Sat by Pulse 100 100 98 Oximetry 07/04/21 03:38 Temperature 97.8 F Pulse Rate 66 Respiratory 18 Rate Blood Pressure Blood Pressure 123/78 [Right] O2 Sat by Pulse 98 Oximetry - Reevaluation(s) Reevaluation #1: I discussed all results and clinical findings with patient. I discussed plan of care with patient. Patient agrees with plan of care. Patient is stable for discharge. Patient will be discharged home. Patient given discharge instructions. Patient voiced understanding of discharge instructions. 07/04/21 02:57 ED Medical Decision Making - Medical Decision Making Patient is a 51-year-old female presents emergency room with recurrent axillary abscess. Patient abscess has opened. Patient's abscess is flat and only cellulitic. Patient had a purulent discharge noted. No further drainage noted with pressure application to the site. Patient vital signs are reassuring. P atient will be treated with oral antibiotics. Patient given amoxicillin and Bactrim. Patient given Diflucan as needed. Patient is stable for discharge. Patient discharged home. Patient does not require inpatient services. Patient not require further emergency medical services. I discussed all results and clinical findings with patient. I discussed plan of care with patient. Patient agrees with plan of care. Patient is stable for discharge. Patient will be discharged home. Patient given discharge instructions. Patient voiced understanding of discharge instructions. - Differential Diagnosis Cellulitis, abscess, Critical care attestation.: If time is entered above; I have spent that time in minutes in the direct care of this critically ill patient, excluding procedure time. ED Disposition Clinical Impression: Abscess of right axilla Cellulitis Qualifiers: Site of cellulitis: extremity Site of cellulitis of extremity: axilla Laterality: right Qualified Code(s): L03.111 - Cellulitis of right axilla Disposition: 01 HOME / SELF CARE / HOMELESS Is pt being admited?: No Does the pt Need Aspirin: No Condition: Stable Instructions: Skin Abscess, Cellulitis, Adult Additional Instructions: Patient to follow-up with primary care in 2 to 3 days. Patient to rest. Patient to increase water. Patient to avoid strenuous exercise or heavy lifting until cleared by primary care. Patient to take Tylenol or ibuprofen as needed for pain. Patient to take meds as directed. Patient to return to the ER if condition worsens, changes or new symptoms arise. Prescriptions: Amoxicillin/K Clav Tab [Augmentin 875MG TAB] 1 tab PO Q12HR #20 tab Sulfamethoxazole/Trimethoprim [Bactrim DS TAB] 1 each PO BID 10 Days #20 tablet Fluconazole [Diflucan TAB] 200 mg PO QDAY 1 Days #1 tablet Referrals: LUPE LUJAN MD [Primary Care Provider] - 3-5 Days Time of Disposition: 02:59
[2021-07-04 03:39] VITALS: BP 123/78
== END 2021-07-04 03:47 | disposition home or self-care (01) ==
LOC: ED 20:51
DX: L02.411 Cutaneous abscess of right axilla (principal); L03.111 Cellulitis of right axilla; I10 Essential (primary) hypertension; K21.9 Gastro-esophageal reflux disease without esophagitis; K64.9 Unspecified hemorrhoids; K50.90 Crohn's disease, unspecified, without complications; N39.0 Urinary tract infection, site not specified; Z98.890 Other specified postprocedural states; F17.200 Nicotine dependence, unspecified, uncomplicated
CPT/HCPCS: 99282

== ENCOUNTER 2022-01-21 01:51 | Emergency (ER) | payer OTHER ==
[2022-01-21 02:31] VITALS: BP 146/90
--- NOTE | 2022-01-21 08:51 | Emergency Department Report ---
Minor Respiratory - HPI Chief Complaint: Upper Respiratory Infection Stated Complaint: COLD SX/EAR/THROAT PAIN Time Seen by Provider: 01/21/22 07:49 Duration: 5 Days Pain Location: Chest Severity: mild Minor Respiratory: Yes Able to Tolerate Fluids, Yes Cough, Yes Sick Contacts, No Rhinorrhea, No Sore Throat, No Ear Pain, No Hemoptysis, No Chest Pain, No Shortness of Breath, No Fever Other History: Ms. Bland is a 51-year-old female that comes to the emergency room with a cough for several weeks. She states that she has seen her primary care doctor in the medicines they have given her have not helped. She does have a Medrol Dosepak which upon review she is not taking properly. She does not have any antibiotics. She has no inhaler or nebulizers. Patient does continue to smoke. Initially she stated that she does not have an issue with chronic respiratory infections: However later in the conversation she endorses that she does. I suspect there is an undiagnosed COPD component to her visit. Patient has no hypotension, tachycardia or fever. She is ambulatory, nontoxic [id number] on arrival to the ER ED Review of Systems ROS: Stated complaint: COLD SX/EAR/THROAT PAIN Other details as noted in HPI Comment: All other systems reviewed and negative ED Past Medical Hx - Past Medical History Previous Medical History?: Yes Hx Hypertension: Yes Hx Congestive Heart Failure: No Hx Diabetes: No Hx GERD: Yes Hx Sickle Cell Disease: No Hx Asthma: No Hx COPD: No Hx HIV: No Additional medical history: chrons. Sinus disease. UTI. Hemorrhoids - Surgical History Past Surgical History?: Yes Additional Surgical History: tubal ligation - Family History Family history: no significant - Social History Smoking Status: Current Some Day Smoker Substance Use Type: Alcohol - Medications Home Medications: Home Medications Medication Instructions Recorded Confirmed Last Taken Type Omeprazole [PriLOSEC] 40 mg PO QDAY 05/03/15 01/21/22 1 Day Ago History ~01/20/22 Triamter/Hctz 37.5-25 mg 1 each PO DAILY #30 tablet 08/02/17 01/21/22 1 Day Ago Rx [Maxzide-25] ~01/20/22 Albuterol Mdi (or & Nicu Only) 2 puff IH QID PRN #1 inhalation 04/20/19 01/21/22 1 Day Ago Rx [ProAir HFA Inhaler] ~01/20/22 Benzonatate [Tessalon Perles] 100 mg PO Q8HR PRN #20 capsule 10/17/19 01/21/22 1 Day Ago Rx ~01/20/22 traMADoL [Ultram 50 MG tab] 50 mg PO Q4HR PRN #14 tablet 05/11/20 01/21/22 1 Day Ago Rx ~01/20/22 Azathioprine 50 mg PO Q12HR 01/21/22 01/21/22 1 Day Ago History ~01/20/22 Dicyclomine 10 mg PO Q6HR PRN 01/21/22 01/21/22 1 Day Ago History ~01/20/22 FLUoxetine 20 mg PO QDAY 01/21/22 01/21/22 1 Day Ago History ~01/20/22 Fluconazole [Diflucan TAB] 150 mg PO QDAY 01/21/22 01/21/22 1 Day Ago History ~01/20/22 Meclizine 25 mg PO Q8HR PRN 01/21/22 01/21/22 1 Day Ago History ~01/20/22 Potassium 10 meq PO QDAY 01/21/22 01/21/22 1 Day Ago History ~01/20/22 Prednisone [predniSONE 5 mg (6-Day 4 mg PO .TAPER 01/21/22 01/21/22 1 Day Ago History Pack, 21 Tabs)] ~01/20/22 Valacyclovir 500 mg PO QDAY 01/21/22 01/21/22 1 Day Ago History ~01/20/22 Minor Respiratory Exam - Exam General: Vital signs noted. No distress. Alert and acting appropriately. HEENT: Yes Moist Mucous Membranes, No Pharyngeal Erythema, No Pharyngeal Exudates, No Rhinorrhea, No Conjuctival Injection, No Frontal Tenderness, No Maxillary Tenderness Ear: Neither TM Bulge, Neither TM Erythema, Neither EAC Pain, Neither EAC Discharge Neck: Yes Supple, No Adenopathy Lungs: Yes Good Air Exchange, No Wheezes, No Ronchi, No Stridor, No Cough, No Labored Respirations, No Retractions, No Use of Accessory Muscles, No Other Abnormal Lung Sounds Heart: Yes Regular, No Murmur Abdomen: Yes Normal Bowel Sounds, No Tenderness, No Peritoneal Signs Skin: No Rash, No Edema Neurologic: Alert and oriented, no deficits. Musculoskeletal: Unremarkable. ED Course Vital Signs 01/21/22 02:29 Temperature 98.4 F Pulse Rate 82 Respiratory 16 Rate Blood Pressure 146/90 O2 Sat by Pulse 99 Oximetry ED Medical Decision Making - Radiology Data Radiology results: report reviewed, image reviewed No acute process - Medical Decision Making Vital Signs 01/21/22 02:29 Temperature 98.4 F Pulse Rate 82 Respiratory 16 Rate Blood Pressure 146/90 O2 Sat by Pulse 99 Oximetry Medicated with IM Decadron while in the ER No indication for antibiotics. Patient has no purulent sputum. No fever. No chills. No hypotension or tachycardia. Patient not noted to be coughing here in the emergency room. She has no shortness of breath or chest pain. Patient being discharged home with discharge plan of care including diet, activity medications and follow-up. I have discussed with her smoking cessation. She verbalizes understanding. - Differential Diagnosis URI, sinusitis, COPD Critical care attestation.: If time is entered above; I have spent that time in minutes in the direct care of this critically ill patient, excluding procedure time. ED Disposition Clinical Impression: Smoker URI (upper respiratory infection) Qualifiers: URI type: unspecified URI Qualified Code(s): J06.9 - Acute upper respiratory infection, unspecified Disposition: 01 HOME / SELF CARE / HOMELESS Is pt being admited?: No Does the pt Need Aspirin: No Condition: Stable Instructions: Viral Respiratory Infection, [id number] Additional Instructions: Continue your home medications including your prednisone and albuterol. Continue Flonase which is [id number]. Take Zyrtec daily which is [id number]. Motrin or Tylenol for any pain Avoid smoking Follow-up with flow floor attendant given your chronic respiratory issues I have given you referral below X-ray today shows no pneumonia or infiltrate suggestive of pneumonia. No need for antibiotics at this time Referrals: NENA PANDA MD [Primary Care Provider] - 3-5 Days Time of Disposition: 08:54
[2022-01-21] MEDS ORDERED: dexAMETHasone 4 MG/ML VIAL IM ONE (08:54)
--- NOTE | 2022-01-21 08:56 | XRay Report ---
CHEST 2 VIEWS INDICATION: cough. COMPARISON: 05/10/2020 FINDINGS: Support devices: None. Heart: Within normal limits. Lungs/pleura: No acute air space or interstitial disease. No pleural abnormality or pneumothorax. Additional findings: None. IMPRESSION: No acute findings. Signer Name: Micha Ayala Jr, MD Signed: 01/21/2022 8:52 AM Workstation Name: [id number]
== END 2022-01-21 10:02 | disposition home or self-care (01) ==
LOC: ED 01:51
DX: J06.9 Acute upper respiratory infection, unspecified (principal); F17.200 Nicotine dependence, unspecified, uncomplicated; F10.20 Alcohol dependence, uncomplicated; I10 Essential (primary) hypertension
CPT/HCPCS: 71046; 96372; 99283; J1100